=== PATIENT | male | born 1950 | race Caucasian/White ===

== ENCOUNTER 2023-11-13 12:45 | Outpatient (RCR) | payer OTHER, SELFPAY | END 2023-11-24 09:24 | disposition home or self-care (01) | LOC: PURB 12:45 | PROVIDERS: ATTENDING PHYSICIAN Internal Medicine Critical Care Medicine; FAMILY PHYSICIAN Nurse Practitioner Family | DX: J98.4 Other disorders of lung (principal) | CPT/HCPCS: G0237; G0239 ==

== ENCOUNTER 2023-12-09 16:15 | Outpatient (RCR) | payer OTHER, SELFPAY | END 2023-12-09 23:59 | disposition home or self-care (01) | LOC: PURB 16:15 | PROVIDERS: ATTENDING PHYSICIAN Internal Medicine Critical Care Medicine; FAMILY PHYSICIAN Nurse Practitioner Family | DX: J98.4 Other disorders of lung (principal) | CPT/HCPCS: G0239 ==

== ENCOUNTER 2023-12-18 16:15 | Outpatient (RCR) | payer OTHER, SELFPAY | END 2023-12-18 23:59 | disposition home or self-care (01) | LOC: PURB 16:15 | PROVIDERS: ATTENDING PHYSICIAN Internal Medicine Critical Care Medicine; FAMILY PHYSICIAN Nurse Practitioner Family | DX: J98.4 Other disorders of lung (principal); G47.33 Obstructive sleep apnea (adult) (pediatric); J96.12 Chronic respiratory failure with hypercapnia | CPT/HCPCS: G0239 ==

== ENCOUNTER 2023-12-25 16:15 | Outpatient (RCR) | payer OTHER, SELFPAY | END 2023-12-25 23:59 | disposition home or self-care (01) | LOC: PURB 16:15 | PROVIDERS: ATTENDING PHYSICIAN Internal Medicine Critical Care Medicine; FAMILY PHYSICIAN Nurse Practitioner Family | DX: J98.4 Other disorders of lung (principal) | CPT/HCPCS: G0239 ==

== ENCOUNTER 2024-03-01 11:10 | Outpatient (RCR) | payer OTHER, SELFPAY | END 2024-03-01 23:59 | disposition home or self-care (01) | LOC: RPT 11:10 | PROVIDERS: ATTENDING PHYSICIAN Psychiatry & Neurology Neurology; FAMILY PHYSICIAN Nurse Practitioner Family | DX: R26.9 Unspecified abnormalities of gait and mobility (principal); M62.81 Muscle weakness (generalized); Z73.6 Limitation of activities due to disability | CPT/HCPCS: 97110; 97163 ==

== ENCOUNTER → 2024-03-17 19:20 | Outpatient (REF) | payer OTHER, SELFPAY | LOC: MRI 19:20 | PROVIDERS: ATTENDING PHYSICIAN Psychiatry & Neurology Neurology; FAMILY PHYSICIAN Nurse Practitioner Family | DX: I63.50 Cerebral infarction due to unspecified occlusion or stenosis of unspecified cerebral artery (principal) | CPT/HCPCS: 70544 ==

== ENCOUNTER 2024-04-21 12:31 | Outpatient (RCR) | payer OTHER, SELFPAY | END 2024-04-21 23:59 | disposition home or self-care (01) | LOC: RPT 12:31 | PROVIDERS: ATTENDING PHYSICIAN Psychiatry & Neurology Neurology; FAMILY PHYSICIAN Nurse Practitioner Family | DX: R26.9 Unspecified abnormalities of gait and mobility (principal); M62.81 Muscle weakness (generalized); Z73.6 Limitation of activities due to disability | CPT/HCPCS: 97110; 97112; 97530 ==

== ENCOUNTER → 2024-05-04 17:17 | Outpatient (REF) | payer OTHER, SELFPAY | LOC: MRI 17:17 | PROVIDERS: ATTENDING PHYSICIAN Psychiatry & Neurology Neurology; FAMILY PHYSICIAN Nurse Practitioner Family | DX: I63.50 Cerebral infarction due to unspecified occlusion or stenosis of unspecified cerebral artery (principal) | CPT/HCPCS: 70549; A9575 ==

== ENCOUNTER 2024-05-19 12:30 | Outpatient (RCR) | payer OTHER, SELFPAY | END 2024-05-19 23:59 | disposition home or self-care (01) | LOC: RPT 12:30 | PROVIDERS: ATTENDING PHYSICIAN Psychiatry & Neurology Neurology; FAMILY PHYSICIAN Nurse Practitioner Family | DX: R26.9 Unspecified abnormalities of gait and mobility (principal); M62.81 Muscle weakness (generalized); Z73.6 Limitation of activities due to disability | CPT/HCPCS: 97110; 97112; 97530 ==

== ENCOUNTER 2024-06-06 23:54 | Inpatient (IN) | payer OTHER, MEDICARE, SELFPAY ==
[2024-06-06 20:07] VITALS: BP 130/60
[2024-06-06 20:37] VITALS: BP 115/84
[2024-06-06 20:49] VITALS: BMI 27.5
[2024-06-06 20:51] LABS: % Basophils 0.2 % (0-2); % Immature Granulocytes 0.4 % (0-0.5); % Lymphocytes 1.8 % (20.5-51.1); % Monocytes 4.2 % (1.7-9.3); % Neutrophils 93.4 % (42.2-75.2); Absolute Immature Granulocytes 0.1 10^3/uL (0-0.05); Absolute Lymphocytes 0.2 10^3/uL (1.2-3.4); Absolute Monocytes 0.6 10^3/uL (0.1-0.6); Absolute Neutrophils 12.4 10^3/uL (1.4-6.5); Hematocrit 39.9 % (39.0-52.0); Hemoglobin 13.2 g/dL (13.0-18.0); Mean Corp Hgb Conc. 33.1 g/dL (33.0-37.0); Mean Corpuscular Hgb 29.9 pg (27.0-31.0); Mean Corpuscular Volume 90.5 fL (80.0-94.0); Mean Platelet Volume 10.8 fL (7.4-10.4); Nucleated Red Blood Cells % 0 % (-); Platelet Count 168 10^3/uL (130-400); Red Blood Cell Count 4.41 10^6/uL (4.70-6.10); White Blood Cell Count 13.2 10^3/uL (4.8-10.8)
[2024-06-06 21:00] VITALS: BP 132/97
--- NOTE | 2024-06-06 21:02 | ED.GENMED ---
History of Present Illness
General
Chief Complaint: Headache
Source: patient and family
Exam Limitations: none
Time Seen by Provider: 06/06/24 20:32
Nursing documentation reviewed up to this point in time: agreed with
History of Present Illness
History of Present Illness:
73-year-old male CHF, permanent A-fib Watchman lives alone, few days of headache fatigue
With fever, nausea mild cough daughter spoke with him on the phone today skin to check on him states he did not look good, brought to the ER
Has been using some Tylenol, patient was at his daughter's wedding a week ago up and about his normal self daughter today states he is definitely not at his baseline, there were some folks at the wedding are sick possibly with COVID
Patient does admit to some dysuria and frequency
Past History
Past History
ED Past Medical History: Arrthythmia (Atrial fib), HTN, Hypercholesterolemia, NIDDM, Hypothyroidism and Other (Chronic LE edema)
ED Past Surgical History: Appendectomy, Cardiac (watchmans Procedure on March 03 2020) and Cholecystectomy
Social History
Tobacco: Former smoker
Alcohol: Occasional
Drug: None
Personal:
Living: alone
Employment: Retired
Review of Systems
Review of Systems
All Other Systems: Not applicable
Constitutional: Reports fever and fatigue
Respiratory: Reports cough and trouble breathing
Cardiac: Reports no symptoms
ABD/GI: Reports nausea; Denies abdominal pain
: Reports dysuria, frequency and urgency
Skin: Reports no symptoms
Neurological: Reports headache and weakness
Endocrine: Reports no symptoms
Hematologic/Lymphatic: Reports no symptoms
Phy Exam
Physical Exam
Physical Exam:
Physical Exam
General: Ill-appearing male feels warm
Neck: Dry lips
Heart: Tachycardic irregular
Lungs: Rhonchi left greater than right
Abdomen: Nontender
Neuro: alert and oriented. no focal neurological deficits
Skin: no rash
Psychiatric: cooperative
Extremities: Trace edema
Course
Orders/Labs/Results
Orders:
Orders
06/06/24 20:12
ECG [Electrocardiogram (*1)] Urgent
Reason for Study: Other
Other Reason for Exam: irregular heatr beat
Cardiology Consult: Aidan Panchal
06/06/24 20:14
EKG- Treatment ONCE
06/06/24 20:19
CT Head W/o Iv Contrast Urgent
Comment:
Reason For Exam: headache and weakness
06/06/24 20:45
COVID-19 Antigen Urgent
Source: Nasal Swab
Complete Blood Count/With Diff Urgent
Comprehensive Metabolic Panel Urgent
06/06/24 20:53
CR Chest Portable - 1 View Urgent
Comment:
Reason For Exam: sob fever
Reason Study Needs to be Portable: Patient Unstable
06/06/24 21:17
Influenza A+B Rapid Molecular Urgent
TRESSA Source: Nasal Swab
Specimen Description:
06/06/24 21:49
Acetaminophen [Tylenol] 650 mg PO NOW STA
06/06/24 22:08
Urinalysis Reflex To Culture Urgent
Date Specimen was Collected: 06/06/24
Time Specimen was Collected: 20:18
Urine Microscopic Reflex Cult Urgent
Urine Culture Urgent
TRESSA Source: U
Specimen Description:
Date Specimen was Collected: 06/06/24
Time Specimen was Collected: 20:18
06/06/24 22:48
CefTRIAXone [Rocephin] 1,000 mg IV NOW STA
06/06/24 22:49
Blood Culture Urgent
TRESSA Source: Blood/Venous
Specimen Description:
06/06/24 22:53
0.9% Sodium Chloride 1000 ml [Nss] 1,000 ml IV BOLUS
Abnormal Lab Results
06/06/24 06/06/24
20:45 22:08
WBC 13.2 H 10^3/uL
(4.8-10.8)
RBC 4.41 L 10^6/uL
(4.70-6.10)
MPV 10.8 H fL
(7.4-10.4)
Abs Immat Gran (auto) 0.1 H 10^3/uL
(0-0.05)
Absolute Neuts (auto) 12.4 H 10^3/uL
(1.4-6.5)
Absolute Lymphs (auto) 0.2 L 10^3/uL
(1.2-3.4)
Neutrophils % 93.4 H %
(42.2-75.2)
Lymphocytes % 1.8 L %
(20.5-51.1)
BUN 28 H mg/dl
(9-20)
Creatinine 2.1 H mg/dL
(0.7-1.3)
Glucose 183 H mg/dl
(70-99)
Total Bilirubin 1.8 H mg/dl
(0.2-1.3)
Ur Occult Blood Reflex 4+ A
(Negative)
Leukocyte Esterase Rfl 2+ A
(Negative)
Urine RBC 26-30 A /HPF
(0-2)
Urine WBC (Reflex) 30-40 A /HPF
(0-5)
Urine Bacteria (Reflex) Many A
(Negative)
06/06/24 20:45
06/06/24 20:45
Vital Signs
Initial and Last Documented VS:
Initial Vital Signs
Temp Pulse Resp BP Pulse Ox
98.7 F 121 20 130/60 94
06/06/24 20:07 06/06/24 20:07 06/06/24 20:07 06/06/24 20:07 06/06/24 20:07
Last Documented Vital Signs
Temp Pulse Resp BP Pulse Ox
100.6 F H 121 20 130/60 94
06/06/24 21:09 06/06/24 20:07 06/06/24 20:07 06/06/24 20:07 06/06/24 20:07
MDM/Problems Addressed
Differential Diagnosis Includes:
Viral infection bacteremia UTI INFORMATICS PHARMACIST infection pneumonia
MDM/Problems Addressed:
Fever confusion
Chronic conditions affecting care: CAD, Cardiomyopathy and Kidney disease
Acute Exacerbation and/or Progression of Chronic Illness: CAD, Cardiomyopathy and Kidney disease
*Radiology
Radiology exam reviewed: preliminary read by ED provider and radiology read reviewed
*Pulse Oximetry
Patient hypoxic: no
*EKG
Interpreted by ED Provider?: Yes
Interpretation: abnormal
Comparison EKG: no comparison EKG present
Heart Rate: 120
Rate: tachycardiac
Rhythm: a-fib
Ischemia: non-specific ST changes
*Manager Client Support Interpretation
Rate: tachycardiac
Interpretation: abnormal
Heart Rate: 118
Rhythm: a-fib
*Critical Care Note
Total Time (30-74mins, 75-104mins- exclusive of procedures): 18
Data Reviewed
Review of Other/Old Records Reveals: Labs and Records
Source: patient, records and family
Further Testing Considered But Not Given:
Lumbar puncture
Update Note
Update Note:
Update patient looks much better after some Tylenol labs are noted including urinalysis he does have symptoms and abnormal urinalysis will start on antibiotics, mental status is pretty clear will hold off on LP will admit to the hospital concern
for bacteremia patient and daughter are in agreement
ED Attending Note
-
Portions of this chart may have been created with voice recognition software.� Occasional wrong word or��sound alike� substitutions may have occurred due to the inherent limitations of voice recognition software.
Discharge Plan
Departure
Patient Disposition: Admit
Date of Disposition: 06/06/24
Time of Disposition: 22:58
Admit to: Telemetry
Presentation/result/management discussed w/ accepting MD/DO: Hospitalist
Patient with high blood pressure during this ER visit?: No
Condition: Fair
Covid-19: Negative COVID-19
Discharge Problem:
Fever, Acute confusion, Acute UTI
Prescriptions:
No Action
aspirin 81 MG tablet,delayed release (DR/EC)
81 mg PO DAILY
rosuvastatin 10 MG tablet
10 mg PO DAILY
fenofibrate nanocrystallized 145 MG tablet
145 mg PO DAILY
levothyroxine 88 MCG tablet
88 mcg PO DAILY AT 0700
multivitamin with folic acid [Tab-A-Chuy] 1 TABLET tablet
1 tab PO DAILY
docusate sodium 100 mg Capsule
100 mg PO BID PRN (Reason: constipation) 30 Days Qty: 60 0RF
tamsulosin 0.4 mg Capsule
0.4 mg PO DAILY 30 Days Qty: 30 0RF
digoxin 125 mcg (0.125 mg) Tablet
125 mcg PO MoWeFrSa@1200 30 Days Qty: 18 0RF
furosemide 20 mg Tablet
60 mg PO BID AT 0800,1600 30 Days Qty: 180 0RF
guaifenesin 600 mg Tablet Extended Release 12hr
1,200 mg PO Q12 7 Days Qty: 28 0RF
midodrine 10 mg tablet
10 mg PO TID 30 Days Qty: 90 0RF
tramadol 50 mg Tablet
25 mg PO DAILYPRN PRN (Reason: severe breakthrough pain) 7 Days Qty: 7 0RF
Rx Instructions:
pain not alleviated by Tylenol
benzonatate 100 mg Capsule
200 mg PO TIDPRN PRN (Reason: cough) 7 Days Qty: 21 0RF
pantoprazole 40 mg Tablet,Delayed Release (Dr/Ec)
40 mg PO DAILY 14 Days Qty: 14 0RF
metoprolol succinate 25 mg Tablet Extended Release 24 Hr
25 mg PO BID 30 Days Qty: 60 0RF
potassium chloride 20 mEq tablet extended release
20 meq PO DAILY 30 Days Qty: 30 0RF
Rx Instructions:
hold if off lasix
acetaminophen 325 mg Tablet
650 mg PO Q6H PRN (Reason: fever or pain) 30 Days Qty: 120 0RF
Referrals:
Yi Julian MD [Family Provider] -
Interventions
Interventions:
*Risk Screen - Suicide Last Done: 06/06/24 20:07
*General Assessment Last Done: 06/06/24 20:07
*Neglect/Abuse Screening Last Done: 06/06/24 20:07
ED- Fall Risk Assessment Last Done: 06/06/24 20:07
*ED COVID-19 Vaccine History Last Done: 06/06/24 20:07
Discharge Date and Time
Print Language: CYPRIOT
[2024-06-06 21:04] LABS: COVID-19 Antigen Negative (Negative)
[2024-06-06 21:09] LABS: ALT (SGPT) 18 U/L (0-50); AST (SGOT) 53 U/L (17-59); Albumin 4.1 g/dl (3.5-5.0); Alkaline Phosphatase 74 U/L (38-126); Blood Urea Nitrogen 28 mg/dl (9-20); Calcium 9.5 mg/dl (8.4-10.2); Carbon Dioxide 29 mmol/L (22-30); Chloride 98 mmol/L (98-107); Estimated Creatinine Clearance 31 ml/min; Glucose 183 mg/dl (70-99); Potassium 4.1 mmol/L (3.5-5.1); Sodium 140 mmol/L (135-145); Total Bilirubin 1.8 mg/dl (0.2-1.3); Total Protein 6.7 g/dl (6.3-8.2); eGFR 32.22
[2024-06-06 22:00] VITALS: BP 127/85
[2024-06-06] MEDS: TYLENOL 650 MG PO (22:03)
[2024-06-06 22:17] LABS: Urine Albumin Trace (Neg - Trace); Urine Bilirubin Negative (Negative); Urine Character Very Cloudy (Clear); Urine Color Yellow; Urine Glucose Negative (Negative); Urine Ketone Negative (Negative); Urine Leukocyte 2+ (Negative); Urine Nitrite Negative (Negative); Urine Occult Blood 4+ (Negative); Urine Urobilinogen Negative (Neg - 1+)
[2024-06-06 22:29] LABS: Urine Squamous Cell 0-2 /LPF (Few)
[2024-06-06 22:30] LABS: Urine Bacteria Many (Negative); Urine Red Blood Cell 26-30 /HPF (0-2); Urine White Cell 30-40 /HPF (0-5)
[2024-06-06] MEDS: NSS 1000 IV (23:09)
[2024-06-06] MEDS: ROCEPHIN 1000 MG IV (23:16)
--- NOTE | 2024-06-06 23:21 | HPS.HSE ---
Family Physician
-
Family Physician: Yi Julian MD
Chief Complaint
-
Weakness and confusion
History of Present Illness
This is a 73-year-old male with past medical history of atrial fibrillation status post Watchman procedure, hypothyroidism, hyperlipidemia, congestive heart failure, BPH, recent episode of TIA/seizure for which he is on Keppra who presents to the
emergency department with weakness and confusion.
Patient was last seen to be normal about a week ago when he was attending a wedding ceremony for his daughter. He tells me that about that 1 week ago he started having dysuria. Denies having any flank pain or back pain. He also reports some
nausea. He denies having any cough. Reports chronic dyspnea on exertion secondary to CHF which has been unchanged. He reports intermittent frontal headaches. Denies any neck pain, nuchal rigidity. Patient does not measure his temperatures at
home. Daughter was speaking to him this morning and noticed that it was not his usual self so decided to bring him to the ED. Patient reported that he was previously treated with finasteride for elevated PSA but finasteride has been discontinued.
He reports her symptoms of nocturia as well as weak stream. He denies any history of kidney stones. He denies any recent instrumentations. No recent travels or sick contacts.
In the emergency department the patient was febrile to 100.6, was tachycardic to the 120s, blood pressure was stable at 130/60 with oxygen saturation 94%. His ECG shows atrial fibrillation with a rate of [address] or T wave changes. CT of
the head was unremarkable chest x-ray was clear. He had a white count of 13,000 with a normal hemoglobin and platelet counts. Chemistries well unchanged from prior with his baseline creatinine of 2.1. UA was markedly positive with pyuria
bacteriuria and some hematuria.
Medical History
Past Medical History
Past Medical History: Reports Arrhythmia (Atrial Fibrillation), CHF, Hypercholesterolemia and Hypothyroidism
Additional Past Medical History:
BPH
Past Surgical History: Reports Orthopedic
Social History
Tobacco: Former Smoker
Alcohol: None
Drug: None
Personal:
Living: Alone
Employment: Retired
Family History
Family History: Not pertinent
Allergies / Home Medications
Allergies reflects when Allergies were last updated in [employer].
Home Medications with original date entered in [employer]
Allergy/Medication List:
Allergies
Allergy/AdvReac Type Severity Reaction Status Date / Time
No Known Allergies Allergy Verified 06/06/24 20:11
Home Medications
aspirin 81 mg tablet,delayed release 81 mg PO DAILY Blood clot prevention/tx 03/20/20
fenofibrate nanocrystallized 145 mg tablet 145 mg PO DAILY High cholesterol 03/20/20
rosuvastatin 10 mg tablet 10 mg PO DAILY High cholesterol 03/20/20
levothyroxine 88 mcg tablet 88 mcg PO DAILY AT 0700 Thyroid 05/30/20
digoxin 62.5 mcg tablet 62.5 mcg PO MoWeFrSa@1200 30 days #18 tabs 05/30/23
furosemide 40 mg tablet 40 mg PO DAILY
metoprolol succinate 25 mg tablet,extended release 24 hr 25 mg PO BID 30 days #60 tabs 05/30/23
pantoprazole 40 mg tablet,delayed release 40 mg PO DAILY 14 days #14 tabs 05/30/23
tamsulosin 0.4 mg capsule 0.4 mg PO DAILY 30 days #30 caps 05/30/23
Levetiracetam 500mg tablet 500mg PO BID
Review of Systems
-
History Source: Patient
Constitutional: Reports Fever and Fatigue
EENT: Reports No Symptoms
Respiratory: Reports No Symptoms
Cardiac: Reports No Symptoms
Abdomen/GI: Reports Nausea
: Reports Dysuria and Frequency
Musculoskeletal: Reports No Symptoms
Skin: Reports No Symptoms
Neurological: Reports Weakness
Endocrine: Reports No Symptoms
Hematologic/Lymphatic: Reports No Symptoms
Psych: Reports No Symptoms
Physical Exam
Vital Signs
Vital Signs
Temp Pulse Resp BP Pulse Ox
100.6 F H 76 18 127/85 96
06/06/24 21:09 06/06/24 23:15 06/06/24 23:15 06/06/24 22:00 06/06/24 23:02
Physical Exam
General: No Apparent Distress
HEENT: NormoCephalic, Anicteric, Moist mucous membranes and Atraumatic
Respiratory: Clear
Cardiac: S1/S2 and Irregular Rhythm
Breast: Deferred by me
GI: Soft, Non Tender, Non Distended and Normal Bowel Sounds
Rectal: Deferred by Provider
Genito-urinary: No costovertebral tender
Musculoskeletal: No Clubbing, No Cyanosis, Edema, Left Lower Extremity (trace) and Edema, Right Lower Extremity (trace)
Skin: Warm
Neuro: AO x 3
Hematologic/Lymphatic: No Lymphadenopathy
Psych: Calm
Laboratory Results
-
06/06/24 20:45
06/06/24 20:45
Laboratory Results
Total Bilirubin 1.8 mg/dl (0.2-1.3) H 06/06/24 20:45
AST 53 U/L (17-59) 06/06/24 20:45
ALT 18 U/L (0-50) 06/06/24 20:45
Alkaline Phosphatase 74 U/L (38-126) 06/06/24 20:45
Data Reviewed
-
Diagnostic Radiology: Image Personally Visualized and interpreted
Medical Tests (Nuc Med, Echo, EKG etc): Image Personally Visualized and interpreted
Lab Data: Discussed with Physician
Old Records: Reviewed
Impression/Plan
-
IMPRESSION:
73 M w/ h/o CHF, AFIB s/p watchman, COPD, ?Sz D/O who presents to ED with dysuria, confusion and found to be febrile.
PLAN:
1. Cystitis/Pyelonephritis - Fever, confusion, dysuria, +u/a in patient with symptomatic BPH. No acute retention. Stable renal function. No shock. No h/o stones/obstruction.
- admit to med/surg
- blood and urine cultures
- check C19
- IV ceftriaxone for now
- s/p IV fluids in ED, will hold further fluids for now as hemodynamically quite stable.
- tamsulosin 0.4 daily, bladder scan for retention
2. AFIB - Rate controlled, s/p watchman
- continue metop succinate 25 daily
- digoxin 62 mcg M/W/F/Sat
- level in am
3. CHF - Euvolemic with trace pedal edema.
- lasix 40 daily
- metoprolol
- K, mag level iin am
4. Seizure - Episode of possible seizure/tia in February. Follows with neuro (Dr. Spaulding)
- keppra 500 bid
5. Hypothyroid
- continue levothyroxine 88 mcg
DVT PPX - hep sq
Code Statuts - DNR
[2024-06-07] VITALS (7 sets, daily range): BP systolic 102–142; BP diastolic 62–90; PULSE 72–92; BMI 26.9
[2024-06-07] MEDS: HEPARIN 5000 UNITS SC ×3 (01:13→15:46)
[2024-06-07] MEDS: TYLENOL 650 MG PO ×4 (01:13→19:53)
[2024-06-07] MEDS: SYNTHROID 88 MCG PO (05:30)
[2024-06-07 08:16] LABS: Hemoglobin 12.8 g/dL (13.0-18.0); Mean Corp Hgb Conc. 32.8 g/dL (33.0-37.0); Mean Corpuscular Hgb 29.7 pg (27.0-31.0); Mean Corpuscular Volume 90.5 fL (80.0-94.0); Mean Platelet Volume 11.5 fL (7.4-10.4); Platelet Count 157 10^3/uL (130-400); Red Blood Cell Count 4.31 10^6/uL (4.70-6.10); Red Cell Dist. Width 14.4 % (11.5-14.5); White Blood Cell Count 9.9 10^3/uL (4.8-10.8)
[2024-06-07] MEDS: PROTONIX 40 MG PO (08:16)
[2024-06-07] MEDS: TOPROL XL 25 MG PO ×2 (08:16→19:57)
[2024-06-07] MEDS: CRESTOR 10 MG PO (08:16)
[2024-06-07] MEDS: ASPIR LOW (ENTERIC COATED) 81 MG PO (08:16)
[2024-06-07] MEDS: FLOMAX 0.4 MG PO (08:16)
--- NOTE | 2024-06-07 08:52 | W.PN.HOSP.TC ---
Today's Communication/Plan
-
Mild IVF
Bladder scan to rule out retention
Renal US
c/w IV Abx
Hold Lasix for now
PT/OT
Assessment / Plan
Assessment / Plan
Physical Exam
General: No Apparent Distress
HEENT: Normocephalic, Anicteric, Moist mucous membranes and Atraumatic
Respiratory: Clear
Cardiac: S1/S2 and Irregular Rhythm
GI: Soft, Non Tender, Non Distended and Normal Bowel Sounds
Rectal: No bleeding
Genito-urinary: No costovertebral tender
Musculoskeletal: No Clubbing, No Cyanosis, Edema, Left Lower Extremity (trace) and Edema, Right Lower Extremity (trace)
Skin: Warm
Neuro: AO x 3
Psych: Calm
# Sepsis POA with fever, tachycardia, confusion, leukocytosis
Likely due to Cystitis/Pyelonephritis with Fever, confusion, dysuria, +u/a in patient with symptomatic BPH. No acute retention. Stable renal function. No shock. No h/o stones/obstruction.
\\He feels better today, still with headache and dysuria
- known BPH without obstruction/lower urinary tract symptoms
WBC normalized
- Order renal US
- Order bladder scan to check for retention
- Give IVF, hold Lasix
- blood and urine cultures
- IV ceftriaxone for now
- tamsulosin 0.4 daily
# Permanent AFIB - Rate controlled, s/p watchman
- continue metop succinate 25 daily
- digoxin 62 mcg M/W/F/Sat
# CKD stage IIIb
c/w IVF
# Known chronic HFrEF
Hold Lasix while dealing with sepsis
- Euvolemic with trace pedal edema.
- metoprolol
- K, mag level in am
#Seizure - Episode of possible seizure/tia in February. Follows with neuro (Dr. Spaulding)
- Keppra 500 bid
# Hypothyroid
- continue levothyroxine 88 mcg
DVT PPX - hep sq
Code Statuts - DNR
Total time spent to see the patient, examine the patient on the floor, review data and lab results, discuss treatment plan with patient, nursing staff around 55 minutes
Anticipated Discharge: > 48 hours
Subjective/Interval History
-
Date of Service: June 07, 2024
He feels better, less aches but has headache
Denies flank pain, reports dysuria
Objective Data
-
Labs:
Laboratory Results
06/06/24 06/07/24
20:45 07:38
WBC 9.9
Hgb 12.8 L
Hct 39.0
Plt Count 157
Sodium 140 Pending
Potassium 4.1 Pending
Chloride 98 Pending
Carbon Dioxide 29 Pending
BUN 28 H Pending
Creatinine 2.1 H Pending
Glucose 183 H Pending
Calcium 9.5 Pending
Total Bilirubin 1.8 H
AST 53
ALT 18
Alkaline Phosphatase 74
Vital Signs:
Vital Signs
Temp Pulse Resp BP Pulse Ox
98.4 F 76 16 119/68 96
06/07/24 07:07 06/07/24 08:15 06/07/24 08:15 06/07/24 08:15 06/07/24 08:15
I&O
06/06/24 06/07/24 06/08/24
06:59 06:59 06:59
Intake Total 240 / 240
Output Total 300 / 300
Balance -60 / -60
[2024-06-07 09:00] LABS: Blood Urea Nitrogen 29 mg/dl (9-20); Calcium 9.3 mg/dl (8.4-10.2); Carbon Dioxide 27 mmol/L (22-30); Chloride 99 mmol/L (98-107); Estimated Creatinine Clearance 35 ml/min; Glucose 108 mg/dl (70-99); Magnesium 1.8 mg/dl (1.6-2.3); Potassium 3.9 mmol/L (3.5-5.1); Sodium 141 mmol/L (135-145); eGFR 36.33
[2024-06-07 09:47] LABS: Digoxin < 0.4 ng/ml (0.8-2.0)
[2024-06-07] MEDS: NSS 1000 IV ×2 (10:02→21:34)
--- NOTE | 2024-06-07 10:49 | CM ---
Patient seen bedside, initial assessment completed. Patient resides independently in a single story apartment, no steps to enter, walk in shower. Patient has a cane for balance, CPAP (unsure of provider). Patient reports [facility] in past, SNF in
past, unsure name of facility. Patient confirms PCP Yi Julian, pharmacy [facility] [address] in [place], confirms prescription coverage. Patient denies any food, housing/utility, transportation insecurities at home. CM will watch for PT/OT
evaluations. CM will continue to follow for all discharge planning needs.
Plan; home with VN vs SNF, watch for PT/OT recommendations.
[2024-06-07] MEDS: LANOXIN 62.5 MCG PO (11:51)
[2024-06-07] MEDS: ROCEPHIN 2000 MG IV (15:51)
[2024-06-07] MEDS: STERILE WATER FOR INJECTION 20 ML IV (15:51)
[2024-06-07] MEDS: ULTRAM 25 MG PO (21:35)
[2024-06-08] MEDS: SYNTHROID 88 MCG PO (04:02)
[2024-06-08] MEDS: ULTRAM 25 MG PO (04:02)
[2024-06-08 07:45] VITALS: BP 134/72
[2024-06-08] MEDS: CRESTOR 10 MG PO (08:08)
[2024-06-08] MEDS: PROTONIX 40 MG PO (08:08)
[2024-06-08] MEDS: FLOMAX 0.4 MG PO (08:08)
[2024-06-08] MEDS: TOPROL XL 25 MG PO ×2 (08:08→20:49)
[2024-06-08] MEDS: HEPARIN 5000 UNITS SC ×3 (08:08→15:21)
[2024-06-08] MEDS: ASPIR LOW (ENTERIC COATED) 81 MG PO (08:08)
[2024-06-08] MEDS: MAGNESIUM SULFATE 50 IV (08:23)
--- NOTE | 2024-06-08 09:25 | W.PN.HOSP.TC ---
Today's Communication/Plan
-
c/w IV Abx
f/w cultures
Stop IVF
Resume Lasix 06/09
Give 2 gm of Mg
PRN Fioricet
I spoke with daughter.
Assessment / Plan
Assessment / Plan
Physical Exam
General: No Apparent Distress
HEENT: Normocephalic, Anicteric, Moist mucous membranes and Atraumatic
Respiratory: Clear
Cardiac: S1/S2
GI: Soft, Non Tender, Non Distended.
Rectal: No bleeding
Genito-urinary: No costovertebral tender
Musculoskeletal: No Clubbing, No Cyanosis.
Skin: Warm
Neuro: AO x 3
Psych: Calm
# Sepsis POA with fever, tachycardia, confusion, leukocytosis
Likely due to Cystitis/Pyelonephritis with Fever, confusion, dysuria, +u/a in patient with symptomatic BPH. No acute retention. Stable renal function. No shock. No h/o stones/obstruction.
# bacteremia
\\He feels better today, still with headache and dysuria
- known BPH without obstruction/lower urinary tract symptoms
WBC normalized
- Order renal US, no hydronephrosis
- Ordered bladder scan, no retention
- Given IVF, held Lasix,stop IVF today, resume Lasix in am
- blood and urine cultures noted, await final results
- IV ceftriaxone for now, increase to 2 gm and wait for results
- tamsulosin 0.4 daily
# Headache , I think its c/w Migraine
He had migraine in past
will give 2 gm of magnesium sulfate, add PRN Fioricet
# Permanent AFIB - Rate controlled, s/p watchman
- continue metop succinate 25 daily
- digoxin 62 mcg M/W/F/Fri
# CKD stage IIIb
s/p IVF
Creatinine around baseline
# Known chronic HFrEF
Held Lasix while dealing with sepsis, resume tomorrow
- Euvolemic with trace pedal edema.
- metoprolol
#Seizure - Episode of possible seizure/tia in February. Follows with neuro (Dr. Spaulding)
- Keppra 500 bid
# Hypothyroid
- continue levothyroxine 88 mcg
DVT PPX - hep sq
Code Statuts - DNR
Total time spent to see the patient, examine the patient on the floor, review data and lab results, discuss treatment plan with patient, nursing staff around 55 minutes
Anticipated Discharge: > 48 hours
Subjective/Interval History
-
Date of Service: June 08, 2024
Still headache
No chest pain
No abdominal pain
Dysuria is less
Objective Data
-
Vital Signs:
Vital Signs
Temp Pulse Resp BP Pulse Ox
98.6 F 62 20 134/72 97
06/08/24 07:45 06/08/24 07:45 06/08/24 07:45 06/08/24 07:45 06/08/24 08:00
I&O
06/07/24 06/08/24 06/09/24
06:59 06:59 06:59
Intake Total 240 / 240 1620 / 1620
Output Total 300 / 300 900 / 900
Balance -60 / -60 720 / 720
[2024-06-08] MEDS: FIORICET 1 TAB PO (11:40)
[2024-06-08] MEDS: ROCEPHIN 2000 MG IV (11:41)
[2024-06-08] MEDS: STERILE WATER FOR INJECTION 20 ML IV (11:41)
--- NOTE | 2024-06-08 11:52 | CM ---
Patient seen bedside, discussed PT recommendations of outpatient PT, OT recommendations of home health vs SNF. Patient not agreeable to SNF, reports he takes care of himself. Patient is agreeable to outpatient PT, will need script upon discharge. CM
will continue to follow for all discharge planning needs.
Plan; home with script for outpatient PT, will need script upon discharge.
--- NOTE | 2024-06-08 12:25 | PN.CDI ---
Addendum entered and electronically signed by Johanna Merrill MD 06/08/24 12:40:
Metabolic Encephalopathy
Original Note:
CDI
- -
CDI:
Physician Documentation Request
Admit Date: 06/06/24 23:54
Dear Doctor Desirae
Patient presents with Sepsis with fever, tachycardia, confusion, leukocytosis
Could you provide a diagnosis in the Progress Notes for the confusion/altered mental status.
Encephalopathy - indicate type, such as metabolic, toxic, septic, alcoholic, anoxic, hypertensive etc. due to a specific condition such as UTI, CVA, hyponatremia etc.
Acute Delirium - indicate known or suspected etiology such as postoperative, due to opioids or other drugs etc. Can also indicate unknown or mixed etiologies.
Acute or subacute confusional state due to ____ (specify known or suspected etiology)
Other
Use of terms such as suspected, likely, concern for, or probable (associated with a specific diagnosis that is being evaluated, monitored, or treated as if it exists) are acceptable and can be coded in the inpatient setting, when documented at the
time of discharge.
Thank you,
Kristan Dyson RN, BSN
CDI Specialist
tiger text
Please use your independent medical judgment in providing your response.
[2024-06-08 15:40] VITALS: BP 118/69
[2024-06-08 15:50] VITALS: BP 118/69; PULSE 62
[2024-06-08 23:34] VITALS: BP 139/85
[2024-06-09] MEDS: HEPARIN 5000 UNITS SC ×3 (00:42→16:12)
--- NOTE | 2024-06-09 03:05 | DOWNTIME ---
There was a [employer] Downtime on 06/09/2024 from 0100 to 06/09/2024 at 0300. Downtime documentation of patient's care, including medication administrations, has been reconciled in the electronic record per guidelines. Refer to the
patient's paper chart under the miscellaneous tab to see printed paper medication records and downtime forms.
[2024-06-09] MEDS: SYNTHROID 88 MCG PO (05:49)
[2024-06-09 06:00] VITALS: BMI 27.7
[2024-06-09 07:00] VITALS: BP 151/84
--- NOTE | 2024-06-09 09:26 | W.PN.HOSP.TC ---
Today's Communication/Plan
-
Likely dc Friday
PT and f/w recommendations
Repeat blood culture
Pyridium
Resume diuretics
CBC & BMP in am
Assessment / Plan
Assessment / Plan
Physical Exam
General: No Apparent Distress
HEENT: Normocephalic, Anicteric, Moist mucous membranes and Atraumatic
Respiratory: Clear
Cardiac: S1/S2
GI: Soft, Non Tender, Non Distended.
Rectal: No bleeding
Genito-urinary: No costovertebral tender
Musculoskeletal: No Clubbing, No Cyanosis.
Skin: Warm
Neuro: AO x 3
Psych: Calm
# Klebsiella Sepsis POA with fever, tachycardia, confusion, leukocytosis
Likely due to Cystitis/Pyelonephritis with Fever, confusion, dysuria, +u/a in patient with symptomatic BPH. No acute retention. Stable renal function. No shock. No h/o stones/obstruction.
# bacteremia
Good clinical improvement
- known BPH without obstruction/lower urinary tract symptoms
WBC normalized
- Ordered renal US, no hydronephrosis
- Ordered bladder scan, no retention
- ordered Pyridium for dysuria
- Given IVF, held Lasix,stopped IVF, resumed Lasix 06/09
- blood and urine cultures noted, await final results
- IV ceftriaxone for now, increased to 2 gm, dc on Keflex for total of 10 days
- tamsulosin 0.4 daily
# Headache , c/w Migraine
He had migraine in past
improved after IV 2 gm of magnesium sulfate, PRN Fioricet
# Metabolic encephalopathy, resolved
Back to baseline, AAOX3
follows commands
Speech is fluent
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 Recommend to c/w aspirin & statin.
# Permanent AFIB - Rate controlled, s/p watchman
- continue metop succinate 25 daily
- digoxin 62 mcg M/W/F/Sat
# CKD stage IIIb
s/p IVF
Creatinine around baseline
# Known chronic HFrEF
Held Lasix while dealing with sepsis, resume tomorrow
- Euvolemic with trace pedal edema.
- metoprolol
#Seizure - Episode of possible seizure/tia in February. Follows with neuro (Dr. Spaulding)
- Keppra 500 bid
# Hypothyroid
- continue levothyroxine 88 mcg
DVT PPX - hep sq
Code Statuts - DNR
Total time spent to see the patient, examine the patient on the floor, review data and lab results, discuss treatment plan with patient, nursing staff around 55 minutes
Anticipated Discharge: 24 - 48 hours
Subjective/Interval History
-
Date of Service: June 09, 2024
No chest pain
No sob
No fevers
No headache
Objective Data
-
Vital Signs:
Vital Signs
Temp Pulse Resp BP Pulse Ox
98.7 F 68 14 151/84 97
06/09/24 07:00 06/09/24 07:00 06/09/24 07:00 06/09/24 07:00 06/09/24 07:00
I&O
06/08/24 06/09/24 06/10/24
06:59 06:59 06:59
Intake Total 1620 / 1620 1335 / 1335
Output Total 900 / 900 300 / 300
Balance 720 / 720 1035 / 1035
[2024-06-09] MEDS: ASPIR LOW (ENTERIC COATED) 81 MG PO (10:00)
[2024-06-09] MEDS: LASIX 60 MG PO ×2 (10:00→16:13)
[2024-06-09] MEDS: CRESTOR 10 MG PO (10:00)
[2024-06-09] MEDS: FLOMAX 0.4 MG PO (10:00)
[2024-06-09] MEDS: Pyridium 100 MG PO ×2 (10:00→16:13)
[2024-06-09] MEDS: TOPROL XL 25 MG PO ×2 (10:00→20:21)
[2024-06-09] MEDS: PROTONIX 40 MG PO (10:00)
--- NOTE | 2024-06-09 10:41 | CM ---
CM reviewed chart, likely for discharge Friday. Patient seen bedside, reports no needs to CM at this time. Patient will require script for PT/OT outpatient therapy upon discharge. CM will continue to follow for all discharge planning needs.
Plan; home with script for outpatient PT/OT upon discharge.
[2024-06-09] MEDS: FLUSH (NSS) 1 FLUSH IV (12:46)
[2024-06-09] MEDS: ROCEPHIN 2000 MG IV (12:46)
[2024-06-09] MEDS: STERILE WATER FOR INJECTION 20 ML IV (12:46)
[2024-06-09] MEDS: LANOXIN 62.5 MCG PO (12:47)
[2024-06-09 15:00] VITALS: BP 128/90
[2024-06-09 15:05] VITALS: BP 131/83; PULSE 84; O2SAT 98
--- NOTE | 2024-06-09 15:34 | PTCARENOTE ---
Pt AAO x3, FIGUEROA well, OOB in chair/ambulates to BR with use of cane/minimal assistance; roxanne well, no c/o weakness/dizziness. VSS. On room air- puls eox 100%, no SOB noted. Abd large, soft, roxanne PO well; 1920 ml fluid restriction maintained. Voids
clear orange-tinged urine in urinal; pt c/o burning with urination. Resting comfortably at present, no c/o. Will continue to monitor.
[2024-06-09 16:24] VITALS: BP 128/90
[2024-06-09 23:24] VITALS: BP 135/79
[2024-06-10] MEDS: Pyridium PO ×3 (00:22→09:50)
[2024-06-10] MEDS: HEPARIN 5000 UNITS SC (00:22)
[2024-06-10 06:00] VITALS: BMI 27.6
[2024-06-10] MEDS: SYNTHROID 88 MCG PO (06:00)
[2024-06-10 07:30] VITALS: BP 136/84
[2024-06-10 07:36] LABS: Hematocrit 37.2 % (39.0-52.0); Hemoglobin 12.2 g/dL (13.0-18.0); Mean Corp Hgb Conc. 32.8 g/dL (33.0-37.0); Mean Corpuscular Hgb 30.1 pg (27.0-31.0); Mean Corpuscular Volume 91.9 fL (80.0-94.0); Mean Platelet Volume 10.8 fL (7.4-10.4); Platelet Count 159 10^3/uL (130-400); Red Blood Cell Count 4.05 10^6/uL (4.70-6.10); Red Cell Dist. Width 13.7 % (11.5-14.5); White Blood Cell Count 6.2 10^3/uL (4.8-10.8)
[2024-06-10 07:59] LABS: Blood Urea Nitrogen 29 mg/dl (9-20); Calcium 8.9 mg/dl (8.4-10.2); Carbon Dioxide 32 mmol/L (22-30); Chloride 96 mmol/L (98-107); Estimated Creatinine Clearance 44 ml/min; Glucose 116 mg/dl (70-99); Potassium 3.6 mmol/L (3.5-5.1); Sodium 139 mmol/L (135-145); eGFR 48.25
--- NOTE | 2024-06-10 09:04 | W.PN.HOSP.TC ---
Today's Communication/Plan
-
Discharge
Assessment / Plan
Assessment / Plan
Physical Exam
General: No Apparent Distress
HEENT: Normocephalic, Anicteric, Moist mucous membranes and Atraumatic
Respiratory: Clear
Cardiac: S1/S2
GI: Soft, Non Tender, Non Distended.
Rectal: No bleeding
Genito-urinary: No costovertebral tender
Musculoskeletal: No Clubbing, No Cyanosis.
Skin: Warm
Neuro: AO x 3
Psych: Calm
# Klebsiella Sepsis POA with fever, tachycardia, confusion, leukocytosis
Likely due to Cystitis/Pyelonephritis with Fever, confusion, dysuria, +u/a in patient with symptomatic BPH. No acute retention. Stable renal function. No shock. No h/o stones/obstruction.
# bacteremia
Good clinical improvement
- known BPH without obstruction/lower urinary tract symptoms
WBC normalized
- Ordered renal US, no hydronephrosis
- Ordered bladder scan, no retention
- ordered Pyridium for dysuria
- Given IVF, held Lasix,stopped IVF, resumed Lasix 06/09
- blood and urine cultures noted.
- s/p IV ceftriaxone, dc on Keflex for total of 10 days
- tamsulosin 0.4 daily. d/w pt, he will f/w urology
# Headache , c/w Migraine
He had migraine in past
improved after IV 2 gm of magnesium sulfate, PRN Fioricet
# Metabolic encephalopathy, resolved
Back to baseline, AAOX3
follows commands
Speech is fluent
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 Recommend to c/w aspirin & statin.
# Permanent AFIB - Rate controlled, s/p watchman
- continue metop succinate 25 daily
- digoxin 62 mcg M///Fri
# CKD stage IIIb
s/p IVF
Creatinine around baseline
# Known chronic HFrEF
Held Lasix while dealing with sepsis, resumed.
Euvolemic with trace pedal edema.
- metoprolol
#Seizure - Episode of possible seizure/tia in February. Follows with neuro (Dr. Spaulding)
- Keppra 500 bid
# Hypothyroid
- continue levothyroxine 88 mcg
DVT PPX - hep sq
Code Status - DNR
Total discharge time spent to see the patient, examine the patient on the floor, review data and lab results, discuss discharge plan with patient, nursing staff around 65 minutes
Anticipated Discharge: Today
Subjective/Interval History
-
Date of Service: June 10, 2024
Doing better
No chest pain
No abd pain
No fevers
No dysuria
Objective Data
-
Labs:
Laboratory Results
06/10/24
07:21
WBC 6.2
Hgb 12.2 L
Hct 37.2 L
Plt Count 159
Sodium 139
Potassium 3.6
Chloride 96 L
Carbon Dioxide 32 H
BUN 29 H
Creatinine 1.5 H
Glucose 116 H
Calcium 8.9
Vital Signs:
Vital Signs
Temp Pulse Resp BP Pulse Ox
97.7 F 66 18 135/79 96
06/09/24 23:24 06/09/24 23:24 06/09/24 23:24 06/09/24 23:24 06/09/24 23:24
I&O
06/09/24 06/10/24 06/11/24
06:59 06:59 06:59
Intake Total 1335 / 1335 780 / 780
Output Total 300 / 300 2150 / 2150
Balance 1035 / 1035 -1370 / -1370
[2024-06-10] MEDS: TOPROL XL 25 MG PO (09:21)
[2024-06-10] MEDS: FLOMAX 0.4 MG PO (09:21)
[2024-06-10] MEDS: CRESTOR 10 MG PO (09:22)
[2024-06-10] MEDS: LASIX 60 MG PO (09:22)
[2024-06-10] MEDS: PROTONIX 40 MG PO (09:22)
[2024-06-10] MEDS: HEPARIN SC (09:22)
[2024-06-10] MEDS: ASPIR LOW (ENTERIC COATED) 81 MG PO (09:22)
--- NOTE | 2024-06-10 10:50 | PTCARENOTE ---
Discharge instructions reviewed with patient. Patient verbalizes understanding of all teaching and denies questions at this time. Peripheral IV removed. Patient left via wheelchair accompanied by staff member. Daughter here to transport patient home.
--- NOTE | 2024-06-10 11:24 | W.DCSUMMARY ---
Discharge Summary
Discharge Data
Date of Admission: 06/06/24
Date of Discharge: 06/10/24
-
Pending Results: No
Hospital Course
[age] years old male presented with urinary tract infection. Patient was complaining of fatigue, confusion. He was found to have leukocytosis and cloudy urine. Urine and blood culture came positive for Klebsiella pneumoniae. Pansensitive
bacteria. Patient was given intravenous antibiotic. Leukocytosis resolved. He did not have fevers in the hospital. His mentation improved and became normal. Renal ultrasound showed no hydronephrosis. Patient complained of history of elevated
PSA in outpatient setting. He was advised to follow-up with urologist. His a primary neurologist had retired and he was given information for local urologist. Patient tolerated diet. He remained hemodynamically stable. He was evaluated by
physical therapy and was discharged home in a stable condition.
Discharge Plan
-
Patient Disposition: Home (Routine Discharge)
Discharge Diagnosis/Procedures: Klebsiella bacteremia and UTI
Condition: Fair
Diet: As tolerated and Diabetic, Carb Controlled
Referrals:
Yi Julian MD [Family Provider] - in one to two weeks
Ricardo Taylor MD [Active] - in one to two weeks
Prescriptions:
New
cephalexin 500 mg Capsule
500 mg PO QID Qty: 24 0RF
qpxkrogrvc-nkxbqbamzrapw-oaam [Fioricet] 50-300-40 mg capsule
1 cap PO DAILYPRN PRN (Reason: Migraine) Qty: 10 0RF
Continued
aspirin 81 MG tablet,delayed release (DR/EC)
81 mg PO DAILY
rosuvastatin 10 MG tablet
10 mg PO DAILY
fenofibrate nanocrystallized 145 MG tablet
145 mg PO DAILY
levothyroxine 88 MCG tablet
88 mcg PO DAILY AT 0700
multivitamin with folic acid [Tab-A-Chuy] 1 TABLET tablet
1 tab PO DAILY
docusate sodium 100 mg Capsule
100 mg PO BID PRN (Reason: constipation) 30 Days Qty: 60 0RF
tamsulosin 0.4 mg Capsule
0.4 mg PO DAILY 30 Days Qty: 30 0RF
digoxin 125 mcg (0.125 mg) Tablet
125 mcg PO MoWeFrSa@1200 30 Days Qty: 18 0RF
midodrine 10 mg tablet
10 mg PO TID 30 Days Qty: 90 0RF
tramadol 50 mg Tablet
25 mg PO DAILYPRN PRN (Reason: severe breakthrough pain) 7 Days Qty: 7 0RF
Rx Instructions:
pain not alleviated by Tylenol
pantoprazole 40 mg Tablet,Delayed Release (Dr/Ec)
40 mg PO DAILY 14 Days Qty: 14 0RF
metoprolol succinate 25 mg Tablet Extended Release 24 Hr
25 mg PO BID 30 Days Qty: 60 0RF
potassium chloride 20 mEq tablet extended release
20 meq PO DAILY 30 Days Qty: 30 0RF
Rx Instructions:
hold if off lasix
acetaminophen 325 mg Tablet
650 mg PO Q6H PRN (Reason: fever or pain) 30 Days Qty: 120 0RF
Changed
furosemide 20 mg Tablet
40 mg PO DAILY 30 Days Qty: 180 0RF
Discontinued
guaifenesin 600 mg Tablet Extended Release 12hr
1,200 mg PO Q12 7 Days Qty: 28 0RF
benzonatate 100 mg Capsule
200 mg PO TIDPRN PRN (Reason: cough) 7 Days Qty: 21 0RF
Discharge Orders:
Discharge Patient (As Directed); Ordered 06/10/24
Ordered By: Johanna Merrill
Discharge Date and Time
Discharge Date/Time: 06/10/24 10:53
Print Language: CITIZEN OF [place]
== END 2024-06-10 10:53 | disposition home or self-care (01) | DRG 871 ==
LOC: 4 EAST ACU 23:54
PROVIDERS: ADMITTING PHYSICIAN Internal Medicine; ATTENDING PHYSICIAN Internal Medicine; EMERGENCY PHYSICIAN Emergency Medicine; FAMILY PHYSICIAN Family Medicine
DX: A41.59 Other Gram-negative sepsis (principal); G93.41 Metabolic encephalopathy; I48.21 Permanent atrial fibrillation; I13.0 Hypertensive heart and chronic kidney disease with heart failure and stage 1 through stage 4 chronic kidney disease, or unspecified chronic kidney disease; I50.22 Chronic systolic (congestive) heart failure; N12 Tubulo-interstitial nephritis, not specified as acute or chronic; Z66 Do not resuscitate; E11.22 Type 2 diabetes mellitus with diabetic chronic kidney disease; N30.91 Cystitis, unspecified with hematuria; N18.32 Chronic kidney disease, stage 3b; J44.9 Chronic obstructive pulmonary disease, unspecified; R56.9 Unspecified convulsions; E03.9 Hypothyroidism, unspecified; N40.0 Benign prostatic hyperplasia without lower urinary tract symptoms; E78.00 Pure hypercholesterolemia, unspecified; Z87.891 Personal history of nicotine dependence; Z95.818 Presence of other cardiac implants and grafts; Z86.73 Personal history of transient ischemic attack (TIA), and cerebral infarction without residual deficits; Z79.890 Hormone replacement therapy; Z79.82 Long term (current) use of aspirin; Z79.899 Other long term (current) drug therapy
CPT/HCPCS: 70450; 71045; 76775; 80048; 80053; 80162; 81003; 81015; 83735; 85025; 85027; 87040; 87077; 87086; 87149; 87186; 87205; 87502; 87811; 93005; 96361; 96374; 97116; 97162; 97166; 97535; 99285

== ENCOUNTER 2024-06-21 11:57 | Outpatient (RCR) | payer OTHER, SELFPAY | END 2024-06-21 23:59 | disposition home or self-care (01) | LOC: RPT 11:57 | PROVIDERS: ATTENDING PHYSICIAN Psychiatry & Neurology Neurology; FAMILY PHYSICIAN Nurse Practitioner Family | DX: R26.89 Other abnormalities of gait and mobility (principal); R26.9 Unspecified abnormalities of gait and mobility (principal); M62.81 Muscle weakness (generalized); Z73.6 Limitation of activities due to disability; R26.81 Unsteadiness on feet | CPT/HCPCS: 97110; 97112; 97164; 97530 ==

== ENCOUNTER 2024-07-22 13:01 | Outpatient (RCR) | payer OTHER, SELFPAY | END 2024-07-22 23:59 | disposition home or self-care (01) | LOC: RPT 13:01 | PROVIDERS: ATTENDING PHYSICIAN Psychiatry & Neurology Neurology | DX: R26.9 Unspecified abnormalities of gait and mobility (principal); R26.89 Other abnormalities of gait and mobility (principal); M62.81 Muscle weakness (generalized); Z73.6 Limitation of activities due to disability; R26.81 Unsteadiness on feet | CPT/HCPCS: 97110; 97112; 97530 ==

== ENCOUNTER → 2024-08-02 14:30 | Outpatient (REF) | payer OTHER, SELFPAY | LOC: HWRAD 14:30 | PROVIDERS: ATTENDING PHYSICIAN Internal Medicine Cardiovascular Disease; FAMILY PHYSICIAN Internal Medicine | DX: I50.32 Chronic diastolic (congestive) heart failure (principal); Z87.09 Personal history of other diseases of the respiratory system | CPT/HCPCS: 71046 ==

== ENCOUNTER 2024-12-02 19:45 | Emergency (ER) | payer OTHER, SELFPAY ==
[2024-12-02 20:09] VITALS: BP 163/108
[2024-12-02 20:30] LABS: % Basophils 0.7 % (0-2); % Eosinophils 5.1 % (0-6); % Immature Granulocytes 0.4 % (0-0.5); % Lymphocytes 14.9 % (20.5-51.1); % Monocytes 5.4 % (1.7-9.3); % Neutrophils 73.5 % (42.2-75.2); Absolute Basophils 0.1 10^3/uL (0-0.2); Absolute Eosinophils 0.4 10^3/uL (0-0.7); Absolute Lymphocytes 1.1 10^3/uL (1.2-3.4); Absolute Monocytes 0.4 10^3/uL (0.1-0.6); Absolute Neutrophils 5.3 10^3/uL (1.4-6.5); Hematocrit 43.8 % (39.0-52.0); Hemoglobin 14.1 g/dL (13.0-18.0); Mean Corp Hgb Conc. 32.2 g/dL (33.0-37.0); Mean Corpuscular Hgb 30.1 pg (27.0-31.0); Mean Corpuscular Volume 93.6 fL (80.0-94.0); Mean Platelet Volume 11.5 fL (7.4-10.4); Nucleated Red Blood Cells % 0 % (-); Platelet Count 215 10^3/uL (130-400); Red Blood Cell Count 4.68 10^6/uL (4.70-6.10); Red Cell Dist. Width 14.6 % (11.5-14.5); White Blood Cell Count 7.2 10^3/uL (4.8-10.8)
[2024-12-02 20:44] LABS: ALT (SGPT) 15 U/L (0-50); AST (SGOT) 33 U/L (17-59); Albumin 4.6 g/dl (3.5-5.0); Alkaline Phosphatase 69 U/L (38-126); Blood Urea Nitrogen 22 mg/dl (9-20); Calcium 9.8 mg/dl (8.4-10.2); Carbon Dioxide 34 mmol/L (22-30); Chloride 96 mmol/L (98-107); Glucose 136 mg/dl (70-99); Potassium 4.9 mmol/L (3.5-5.1); Sodium 139 mmol/L (135-145); Total Bilirubin 1.1 mg/dl (0.2-1.3); Total Protein 7.3 g/dl (6.3-8.2); eGFR 41.26
[2024-12-02 22:48] VITALS: BP 180/106
[2024-12-03] VITALS (7 sets, daily range): BP systolic 139–194; BP diastolic 85–119
--- NOTE | 2024-12-03 02:51 | ED.GENMED ---
History of Present Illness
General
Chief Complaint: Cold/Flu/URI Symptoms
Source: patient and family (daughter)
Time Seen by Provider: 12/03/24 01:02
History of Present Illness
History of Present Illness:
74-year-old male brought in by daughter for multiple complaints including constipation and decreased appetite. He has been to his PCP several times for these issues. Daughter, who lives with him, has been noticing a decline. Patient denies any
trauma. He does not feel like there is anything around. History is limited due to patient condition.
Past History
Past History
ED Past Medical History: Arrthythmia (Atrial fib), HTN, Hypercholesterolemia, NIDDM, Hypothyroidism and Other (Chronic LE edema)
ED Past Surgical History: Appendectomy, Cardiac (watchmans Procedure on March 03 2020) and Cholecystectomy
Social History
Tobacco: Former smoker
Alcohol: Occasional
Drug: None
Personal:
Living: alone
Employment: Retired
Phy Exam
General Physical Exam
General Presentation: well appearing and mild distress
General age: appears stated age
General Skin: warm and dry
General Habitus: normal
General Mental: alert
General Hydration: appears well hydrated
ENT Exam
ENT Exam: EOMI, pharynx normal, neck supple and normocephalic
Eye Exam
Eye Exam: PERRL, cornea clear and conjunctiva normal
Cardiovascular Exam
Cardiovascular Exam: regular rate/rhythm, no edema, no murmur and normal peripheral pulses
Pulmonary Exam
Pulmonary Exam: lungs clear, no respiratory distress, no rales, no crackles, no rhonchi, no stridor, no wheezing and no cough
Gastrointestinal Exam
Gastrointestinal Exam: normal bowel sounds, non tender, soft, no organomegaly, no pulsatile mass and non distended
Neurological Exam
Neurological Exam: alert and oriented x3
Musculoskeletal Exam
Musculoskeletal Exam: full ROM, neuro vasc intact and other (Scoliosis, walks with a cane)
Skin Exam
Skin Exam: normal color, warm/dry, no rash and no petechia
Psychiatric Exam
Psychiatric Exam: normal mood/affect
Course
Orders/Labs/Results
Orders:
Orders
12/02/24 20:12
EKG [Electrocardiogram (*1)] Urgent
Reason for Study: Shortness of Breath
EKG- Treatment ONCE
12/02/24 20:19
Complete Blood Count/With Diff Urgent
Comprehensive Metabolic Panel Urgent
12/03/24 01:18
CT Head W/o Iv Contrast Urgent
Comment:
Reason For Exam: incr confusion
12/03/24 02:48
Urinalysis Reflex To Culture Urgent
Date Specimen was Collected: 12/03/24
Time Specimen was Collected: 02:24
Urine Microscopic Reflex Cult Urgent
Urine Culture Urgent
TRESSA Source: U
Specimen Description:
Date Specimen was Collected: 12/03/24
Time Specimen was Collected: 02:24
12/03/24 02:50
Ondansetron Injectable [Zofran] 4 mg IV NOW STA
12/03/24 02:51
Butalb/Acetaminophen/Caffeine [Fioricet] 1 tab PO NOW STA
12/03/24 02:52
0.9% Sodium Chloride 500 ml [Nss] 500 ml IV BOLUS
12/03/24 04:48
Case Management Consult ONCE
Case Management Consult: [facility]N/Home Care
12/03/24 06:32
Fosfomycin [Monurol] 3 gm PO ONCE ONE
Abnormal Lab Results
12/02/24 12/03/24
20:19 02:48
RBC 4.68 L 10^6/uL
(4.70-6.10)
MCHC 32.2 L g/dL
(33.0-37.0)
RDW 14.6 H %
(11.5-14.5)
MPV 11.5 H fL
(7.4-10.4)
Absolute Lymphs (auto) 1.1 L 10^3/uL
(1.2-3.4)
Lymphocytes % 14.9 L %
(20.5-51.1)
Chloride 96 L mmol/L
(98-107)
Carbon Dioxide 34 H mmol/L
(22-30)
BUN 22 H mg/dl
(9-20)
Creatinine 1.7 H mg/dL
(0.7-1.3)
Glucose 136 H mg/dl
(70-99)
Urine Bacteria (Reflex) Moderate A
(Negative)
Urine Albumin (Reflex) 2+ A
(Neg - Trace)
12/02/24 20:19
12/02/24 20:19
Vital Signs
Initial and Last Documented VS:
Initial Vital Signs
Temp Pulse Resp BP Pulse Ox
97.4 F 70 18 163/108 96
12/02/24 20:09 12/02/24 20:09 12/02/24 20:09 12/02/24 20:09 12/02/24 20:09
Last Documented Vital Signs
Temp Pulse Resp BP Pulse Ox
97.4 F 70 13 148/95 95
12/02/24 20:09 12/03/24 04:15 12/03/24 04:15 12/03/24 06:00 12/03/24 06:15
*Critical Care Note
Total Time (30-74mins, 75-104mins- exclusive of procedures): Not Applicable
Update Note
Update Note:
CT HEAD
IMPRESSION:
No acute hemorrhage, herniation, or hydrocephalus. Moderate periventricular hypodensities, likely the sequela of small vessel ischemic disease.
No calvarial fracture.
The visualized paranasal sinuses and mastoid air cells are clear.
Spoke with daughter to review all lab work. Patient is ambulating around the room without issue. He is not having any shortness of breath. He did have a bowel movement while here in the ER.
Some bacteria in the urine. Patient is asymptomatic. Will get a dose of Monurol.
Case management consulted.
Patient to be discharged home in the care of daughter.
ED Attending Note
-
Portions of this chart may have been created with voice recognition software.� Occasional wrong word or��sound alike� substitutions may have occurred due to the inherent limitations of voice recognition software.
Discharge Plan
Departure
Patient Disposition: Home (Routine Discharge)
Date of Disposition: 12/03/24
Time of Disposition: 06:32
Patient with high blood pressure during this ER visit?: Yes
Condition: Good
Discharge Problem:
Acute UTI, Weakness, Constipation
Instructions: Urinary tract infections in adults, Fatigue (DC), Constipation, Adult ED
Prescriptions:
No Action
aspirin 81 MG tablet,delayed release (DR/EC)
81 mg PO DAILY
rosuvastatin 10 MG tablet
10 mg PO DAILY
fenofibrate nanocrystallized 145 MG tablet
145 mg PO DAILY
levothyroxine 88 MCG tablet
88 mcg PO DAILY AT 0700
multivitamin with folic acid [Tab-A-Chuy] 1 TABLET tablet
1 tab PO DAILY
docusate sodium 100 mg Capsule
100 mg PO BID PRN (Reason: constipation) 30 Days Qty: 60 0RF
tamsulosin 0.4 mg Capsule
0.4 mg PO DAILY 30 Days Qty: 30 0RF
digoxin 125 mcg (0.125 mg) Tablet
125 mcg PO MoWeFrSa@1200 30 Days Qty: 18 0RF
midodrine 10 mg tablet
10 mg PO TID 30 Days Qty: 90 0RF
tramadol 50 mg Tablet
25 mg PO DAILYPRN PRN (Reason: severe breakthrough pain) 7 Days Qty: 7 0RF
Rx Instructions:
pain not alleviated by Tylenol
pantoprazole 40 mg Tablet,Delayed Release (Dr/Ec)
40 mg PO DAILY 14 Days Qty: 14 0RF
metoprolol succinate 25 mg Tablet Extended Release 24 Hr
25 mg PO BID 30 Days Qty: 60 0RF
potassium chloride 20 mEq tablet extended release
20 meq PO DAILY 30 Days Qty: 30 0RF
Rx Instructions:
hold if off lasix
acetaminophen 325 mg Tablet
650 mg PO Q6H PRN (Reason: fever or pain) 30 Days Qty: 120 0RF
cephalexin 500 mg Capsule
500 mg PO QID Qty: 24 0RF
furosemide 20 mg Tablet
40 mg PO DAILY 30 Days Qty: 180 0RF
ygebjxvabr-hcekcspcsnhjq-qelu [Fioricet] 50-300-40 mg capsule
1 cap PO DAILYPRN PRN (Reason: Migraine) Qty: 10 0RF
Referrals:
Mario Moran I., DO [Family Provider] -
Activity Restrictions/Additional Instructions:
You received a one-time dose of antibiotics. No further prescription needed. Case management consulted. You should be receiving a call over the next few business days.
It was a pleasure meeting you and taking part in your care. We hope for your continued healing and wellness.
Please read discharge instructions in their entirety. However, they are for general education and may not describe your exact diagnosis at discharge. Information on your ER visit and medical conditions were discussed with you along with appropriate
follow up information...
If indicated, please take your medications as instructed and indicated on discharge paperwork.
Please schedule a follow up appointment as directed. Call to schedule an appointment
Please return to the emergency department with ANY change in, persisting, or worsening of symptoms. If any of your symptoms do not improve, or persist, or become more severe within 6-12 hours, please return to the emergency department for further
care.
Please return to the emergency department if you develop a headache, neck pain/stiffness, fever greater than 100.4F, chest pain, shortness of breath, persistent nausea, vomiting, slurred speech, difficulty walking, numbness/tingling, weakness, signs
of infection or any other symptoms that are worrisome to you.
If you have any questions or concerns please do not hesitate to call the Hospital at or E-mail me directly at [email or web address]
Interventions
Interventions:
*Risk Screen - Suicide Last Done: 12/02/24 20:09
*General Assessment Last Done: 12/02/24 20:09
*Neglect/Abuse Screening Last Done: 12/02/24 20:09
*ED- Fall Risk Assessment Last Done: 12/02/24 20:09
*ED COVID-19 Vaccine History Last Done: 12/02/24 20:09
ED- Pulmonary Assessment Last Done: 12/03/24 01:19
Discharge Date and Time
Print Language: CR[place]
[2024-12-03 02:55] LABS: Urine Albumin 2+ (Neg - Trace); Urine Bilirubin Negative (Negative); Urine Character Clear (Clear); Urine Color Yellow; Urine Glucose Negative (Negative); Urine Ketone Negative (Negative); Urine Leukocyte Negative (Negative); Urine Nitrite Negative (Negative); Urine Occult Blood Negative (Negative); Urine Urobilinogen Negative (Neg - 1+)
[2024-12-03] MEDS: ZOFRAN 4 MG IV (03:07)
[2024-12-03] MEDS: FIORICET 1 TAB PO (03:08)
[2024-12-03] MEDS: NSS 500 IV (03:08)
[2024-12-03 03:16] LABS: Urine Amorphous Seen; Urine Bacteria Moderate (Negative); Urine Hyaline Cast 0-2 /LPF (0-2); Urine Red Blood Cell 0-2 /HPF (0-2); Urine White Cell 0-2 /HPF (0-5)
[2024-12-03] MEDS: MONUROL 3 GM PO (06:43)
== END 2024-12-03 07:13 | disposition home or self-care (01) ==
LOC: EMR 19:45
PROVIDERS: Emergency Medicine; EMERGENCY PHYSICIAN Student in an Organized Health Care Education/Training Program; FAMILY PHYSICIAN Internal Medicine
DX: N39.0 Urinary tract infection, site not specified (principal); R53.1 Weakness; K59.00 Constipation, unspecified; E03.9 Hypothyroidism, unspecified; E11.9 Type 2 diabetes mellitus without complications; E78.00 Pure hypercholesterolemia, unspecified; I10 Essential (primary) hypertension; I48.91 Unspecified atrial fibrillation; M41.9 Scoliosis, unspecified; Z87.891 Personal history of nicotine dependence; Z90.49 Acquired absence of other specified parts of digestive tract
CPT/HCPCS: 96374; 96361; 99284; 70450; 80053; 81003; 81015; 85025; 87086; 93005

== ENCOUNTER 2024-12-31 19:20 | Emergency (ER) | payer OTHER, SELFPAY ==
[2024-12-31 19:23] VITALS: BP 95/75
[2024-12-31 21:43] LABS: % Basophils 0.7 % (0-2); % Eosinophils 3.7 % (0-6); % Immature Granulocytes 0.4 % (0-0.5); % Lymphocytes 12.6 % (20.5-51.1); % Monocytes 4.9 % (1.7-9.3); % Neutrophils 77.7 % (42.2-75.2); Absolute Basophils 0.1 10^3/uL (0-0.2); Absolute Eosinophils 0.3 10^3/uL (0-0.7); Absolute Lymphocytes 1.2 10^3/uL (1.2-3.4); Absolute Monocytes 0.5 10^3/uL (0.1-0.6); Absolute Neutrophils 7.2 10^3/uL (1.4-6.5); Hematocrit 46.9 % (39.0-52.0); Hemoglobin 15.3 g/dL (13.0-18.0); Mean Corp Hgb Conc. 32.6 g/dL (33.0-37.0); Mean Corpuscular Hgb 29.9 pg (27.0-31.0); Mean Corpuscular Volume 91.8 fL (80.0-94.0); Mean Platelet Volume 11.5 fL (7.4-10.4); Nucleated Red Blood Cells % 0 % (-); Platelet Count 198 10^3/uL (130-400); Red Blood Cell Count 5.11 10^6/uL (4.70-6.10); Red Cell Dist. Width 14.5 % (11.5-14.5); White Blood Cell Count 9.2 10^3/uL (4.8-10.8)
--- NOTE | 2024-12-31 21:46 | ED.GENMED ---
History of Present Illness
General
Chief Complaint: Fall
Source: patient
Time Seen by Provider: 12/31/24 21:32
History of Present Illness
History of Present Illness:
74-year-old male presents to the emergency room complaining of headache on the right side and having some falls. Patient states he fell yesterday because he just lost his balance while turning. He struck left side of his head. He was having pain
on the right side of his head prompting his concern and decision to come to the emergency room. He took a Fioricet for the headache without improvement. Patient denies any fever, chills, nausea or vomiting.
Past History
Past History
ED Past Medical History: Arrthythmia (Atrial fib), HTN, Hypercholesterolemia, NIDDM, Hypothyroidism and Other (Chronic LE edema)
ED Past Surgical History: Appendectomy, Cardiac (watchmans Procedure on March 03 2020) and Cholecystectomy
Social History
Tobacco: Former smoker
Alcohol: Occasional
Drug: None
Personal:
Living: alone
Employment: Retired
Phy Exam
Physical Exam
Physical Exam:
General: Awake, Alert, Oriented X3. No acute distress.
Vitals: Mildly hypertensive
Head: Ecchymosis left forehead
Eyes: Pupils equal, EOMI
Throat: Airway intact, no exudates
Neck: Trachea midline
Lungs: Clear and equal b/l
Heart: Regular rate, no murmurs
Abd: Soft, Nontender, No pulsatile mass
Neuro: Cranial nerves intact, muscle strength equal bilaterally
Skin: Warm, dry, no rash
Extremities: pulses equal b/l, no edema
Course
Orders/Labs/Results
Orders:
Orders
12/31/24 19:28
CT Head W/o Iv Contrast Urgent
Comment:
Reason For Exam: fall
12/31/24 21:23
Basic Metabolic Panel Urgent
Complete Blood Count/With Diff Urgent
12/31/24 21:28
EKG [Electrocardiogram (*1)] Urgent
Reason for Study: Vertigo / Dizzy
EKG- Treatment ONCE
12/31/24 21:47
Acetaminophen [Tylenol] 650 mg PO NOW STA
12/31/24 21:56
Acetaminophen [Tylenol] 650 mg .ROUTE .STK-MED ONE
12/31/24 23:31
Diphenhydramine [Benadryl] 25 mg IV NOW STA
Metoclopramide [Reglan] 10 mg IV NOW STA
Abnormal Lab Results
12/31/24
21:23
MCHC 32.6 L g/dL
(33.0-37.0)
MPV 11.5 H fL
(7.4-10.4)
Absolute Neuts (auto) 7.2 H 10^3/uL
(1.4-6.5)
Neutrophils % 77.7 H %
(42.2-75.2)
Lymphocytes % 12.6 L %
(20.5-51.1)
BUN 30 H mg/dl
(9-20)
Creatinine 1.7 H mg/dL
(0.7-1.3)
Glucose 160 H mg/dl
(70-99)
12/31/24 21:23
12/31/24 21:23
Vital Signs
Initial and Last Documented VS:
Initial Vital Signs
Temp Pulse Resp BP Pulse Ox
97.8 F 83 16 95/75 96
12/31/24 19:23 12/31/24 19:23 12/31/24 19:23 12/31/24 19:23 12/31/24 19:23
Last Documented Vital Signs
Temp Pulse Resp BP Pulse Ox
97.8 F 70 18 189/91 96
12/31/24 19:23 12/31/24 23:47 12/31/24 23:47 01/01/25 00:21 12/31/24 19:23
MDM/Problems Addressed
Differential Diagnosis Includes:
Subdural, cerebral contusion, tension headache, migraine headache
MDM/Problems Addressed:
Patient presents for evaluation of a headache after a fall. Head CT shows no acute abnormalities. Patient did not have improvement of his headache with Tylenol. Reglan and Benadryl were given with resolution of his headache. Patient stable for
discharge home. Labs show mild elevation renal function which is baseline for the patient.
*Radiology
Radiology exam reviewed: radiology read reviewed
*Pulse Oximetry
Patient hypoxic: no
*Critical Care Note
Total Time (30-74mins, 75-104mins- exclusive of procedures): Not Applicable
ED Attending Note
-
Portions of this chart may have been created with voice recognition software.� Occasional wrong word or��sound alike� substitutions may have occurred due to the inherent limitations of voice recognition software.
Discharge Plan
Departure
Patient Disposition: Home (Routine Discharge)
Date of Disposition: 01/01/25
Time of Disposition: 00:22
Patient with high blood pressure during this ER visit?: Yes
Condition: Good
Discharge Problem:
Headache, Head injury
Instructions: Head Injury in Adults (DC)
Prescriptions:
No Action
aspirin 81 MG tablet,delayed release (DR/EC)
81 mg PO DAILY
rosuvastatin 10 MG tablet
10 mg PO DAILY
fenofibrate nanocrystallized 145 MG tablet
145 mg PO DAILY
levothyroxine 88 MCG tablet
88 mcg PO DAILY AT 0700
multivitamin with folic acid [Tab-A-Chuy] 1 TABLET tablet
1 tab PO DAILY
docusate sodium 100 mg Capsule
100 mg PO BID PRN (Reason: constipation) 30 Days Qty: 60 0RF
tamsulosin 0.4 mg Capsule
0.4 mg PO DAILY 30 Days Qty: 30 0RF
digoxin 125 mcg (0.125 mg) Tablet
125 mcg PO MoWeFrSa@1200 30 Days Qty: 18 0RF
midodrine 10 mg tablet
10 mg PO TID 30 Days Qty: 90 0RF
tramadol 50 mg Tablet
25 mg PO DAILYPRN PRN (Reason: severe breakthrough pain) 7 Days Qty: 7 0RF
Rx Instructions:
pain not alleviated by Tylenol
pantoprazole 40 mg Tablet,Delayed Release (Dr/Ec)
40 mg PO DAILY 14 Days Qty: 14 0RF
metoprolol succinate 25 mg Tablet Extended Release 24 Hr
25 mg PO BID 30 Days Qty: 60 0RF
potassium chloride 20 mEq tablet extended release
20 meq PO DAILY 30 Days Qty: 30 0RF
Rx Instructions:
hold if off lasix
acetaminophen 325 mg Tablet
650 mg PO Q6H PRN (Reason: fever or pain) 30 Days Qty: 120 0RF
cephalexin 500 mg Capsule
500 mg PO QID Qty: 24 0RF
furosemide 20 mg Tablet
40 mg PO DAILY 30 Days Qty: 180 0RF
ruhbyxngod-yxejadqdrcrwu-iyuf [Fioricet] 50-300-40 mg capsule
1 cap PO DAILYPRN PRN (Reason: Migraine) Qty: 10 0RF
Referrals:
Mario Moran I., DO [Family Provider] -
Interventions
Interventions:
*Risk Screen - Suicide Last Done: 12/31/24 19:23
*General Assessment Last Done: 12/31/24 19:23
*Neglect/Abuse Screening Last Done: 12/31/24 19:23
*ED- Fall Risk Assessment Last Done: 01/01/25 00:36
*ED COVID-19 Vaccine History Last Done: 12/31/24 19:23
*Nursing Disposition Last Done: 01/01/25 00:36
ED-Musculoskeletal Assessment Last Done: 12/31/24 21:29
ED- Neurological Assessment Last Done: 12/31/24 21:25
ED-Skin Assessment Last Done: 12/31/24 21:29
Discharge Date and Time
Discharge Date/Time: 01/01/25 00:36
Print Language: SW[place]
[2024-12-31 21:47] VITALS: BP 157/93
[2024-12-31] MEDS: TYLENOL 650 MG PO (21:57)
[2024-12-31 21:59] LABS: Blood Urea Nitrogen 30 mg/dl (9-20); Calcium 9.5 mg/dl (8.4-10.2); Carbon Dioxide 27 mmol/L (22-30); Chloride 102 mmol/L (98-107); Glucose 160 mg/dl (70-99); Sodium 139 mmol/L (135-145); eGFR 41.26
[2024-12-31 22:29] VITALS: BP 161/100
[2024-12-31] MEDS: REGLAN 10 MG IV (23:39)
[2024-12-31] MEDS: BENADRYL 25 MG IV (23:40)
[2024-12-31 23:47] VITALS: BP 168/104
[2025-01-01 00:21] VITALS: BP 189/91
== END 2025-01-01 00:36 | disposition home or self-care (01) ==
LOC: EMR 19:20
PROVIDERS: EMERGENCY PHYSICIAN Emergency Medicine; FAMILY PHYSICIAN Internal Medicine
DX: R51.9 Headache, unspecified (principal); S09.90XA Unspecified injury of head, initial encounter; W19.XXXA Unspecified fall, initial encounter; I10 Essential (primary) hypertension; Z87.891 Personal history of nicotine dependence
CPT/HCPCS: 99285; 96374; 96375; 70450; 80048; 85025; 93005

== ENCOUNTER → 2025-01-13 09:20 | Outpatient (REF) | payer OTHER, SELFPAY | LOC: RCS 09:20 | PROVIDERS: ATTENDING PHYSICIAN Internal Medicine Cardiovascular Disease; FAMILY PHYSICIAN Internal Medicine | DX: I50.32 Chronic diastolic (congestive) heart failure (principal) | CPT/HCPCS: 93306 ==

== ENCOUNTER → 2025-01-27 06:56 | Outpatient (REF) | payer OTHER, SELFPAY | LOC: PAVMRI 06:56 | PROVIDERS: ATTENDING PHYSICIAN Internal Medicine | DX: R26.9 Unspecified abnormalities of gait and mobility (principal); R51.9 Headache, unspecified; R41.89 Other symptoms and signs involving cognitive functions and awareness | CPT/HCPCS: 70551 ==

== ENCOUNTER → 2025-03-28 09:38 | Outpatient (REF) | payer OTHER, SELFPAY | LOC: HWRAD 09:38 | PROVIDERS: ATTENDING PHYSICIAN Nurse Practitioner Adult Health; FAMILY PHYSICIAN Internal Medicine | DX: J90 Pleural effusion, not elsewhere classified (principal) | CPT/HCPCS: 71250 ==

== ENCOUNTER 2025-04-13 12:59 | Emergency (ER) | payer OTHER, SELFPAY ==
[2025-04-13 13:01] VITALS: BP 162/100
[2025-04-13 13:17] LABS: Hematocrit 44.0 % (39.0-52.0); Hemoglobin 14.3 g/dL (13.0-18.0); Mean Corp Hgb Conc. 32.5 g/dL (33.0-37.0); Mean Corpuscular Volume 94.2 fL (80.0-94.0); Nucleated Red Blood Cells % 0 % (-); Platelet Count 184 10^3/uL (130-400); Red Cell Dist. Width 14.0 % (11.5-14.5)
[2025-04-13 14:00] LABS: ALT (SGPT) 26 U/L (0-50); AST (SGOT) 89 U/L (17-59); Albumin 4.1 g/dl (3.5-5.0); Alkaline Phosphatase 95 U/L (38-126); Blood Urea Nitrogen 21 mg/dl (9-20); Calcium 9.0 mg/dl (8.4-10.2); Carbon Dioxide 30 mmol/L (22-30); Chloride 103 mmol/L (98-107); Glucose 148 mg/dl (70-99); Potassium 4.2 mmol/L (3.5-5.1); Sodium 137 mmol/L (135-145); Total Protein 6.7 g/dl (6.3-8.2); eGFR 47.95
--- NOTE | 2025-04-13 15:17 | ED.GENMED ---
History of Present Illness
General
Chief Complaint: Fall
Source: patient and family
Exam Limitations: none
Time Seen by Provider: 04/13/25 15:12
Nursing documentation reviewed up to this point in time: agreed with
History of Present Illness
History of Present Illness:
74 yo male w h/o spinal stenosis, gait abnormality, afib, Watchman implant 2019, HTN, HLD, NIDDM, Hypothyroid, BPH, Migraines, CKD 3, HFrEF, seizure, chronic LE edema, here with daughter with whom he lives for increasing SOB over past few days.
Today daughter took him to dentist and was SOB walking to office and had to use his Albuterol inhaler which is rare, also his BP at that time was 189/112.
Pt and daughter state his proposal consultant Dr Wu ordered chest CT on 03/28 which showed a nodule and is to be repeated for observation
He feels constipated, had normal BM 3 days ago then large amounts watery diarrhea past two days, has been taking MOM. Last diarrheal stool yesterday. Feels bloated and gassy.
States 'my balance is terrible' is 8 days post fall after he stumbled on rug, lost balance, fell against the glass sliding door then onto his butt and has had low back pain since that is improving daily with some help from Fiorocet he has for his
headaches. States he wouldn't be here just for his back pain as it is improving.
Has intermittent dizziness and was instructed to follow up with his neurologist but hasn't made appointment due to 'other things going on.' Denies dizziness now.
Past History
Past History
ED Past Medical History: Arrthythmia (Atrial fib), HTN, Hypercholesterolemia, NIDDM, Hypothyroidism and Other (Chronic LE edema)
ED Past Surgical History: Appendectomy, Cardiac (watchmans Procedure on March 03 2020) and Cholecystectomy
Social History
Tobacco: Former smoker
Alcohol: Occasional
Drug: None
Personal:
Living: with family
Employment: Retired
Review of Systems
Review of Systems
Allergies reviewed?: Yes
All Other Systems: ROS reviewed and negative except as documented in HPI and ROS
Constitutional: Reports fatigue; Denies fever
Respiratory: Reports trouble breathing (SOB with exertion worse past 3 days)
ABD/GI: Reports diarrhea, constipated and other (feels gassy and bloated, no pain); Denies nausea or vomiting
: Reports difficulty voiding (chronic); Denies dysuria
Musculoskeletal: Denies edema
Neurological: Denies dizzy or headache
Phy Exam
Physical Exam
Physical Exam:
GENERAL: No acute distress. A&Ox3.
CONSTITUTIONAL: Afebrile.
EYES: clear, conjunctivae normal
ENMT: moist mucus membranes, Pharynx nl
RESPIRATORY: Regular respirations, nonlabored, lungs clear.
CARDIOVASCULAR: Regular rate and rhythm, no murmurs, no rubs.
GI: Soft, nontender, non distended, normal BS
MUSCULOSKELETAL: No spinal bony tenderness, no tenderness to rest of back. No edema. Moves slowly with cane independently. Well perfused.
SKIN: Warm, dry, pink
PSYCH: Normal mood and affect. Well kept, interactive and appropriate
NEUROLOGIC: Awake, alert and oriented. No focal neurological deficits
Course
Orders/Labs/Results
Orders:
Orders
04/13/25 13:11
CMP [Comprehensive Metabolic Panel] Urgent
Complete Blood Count/With Diff Urgent
NT-proBNP Urgent
Comment: ADD ON
04/13/25 15:43
Add On- LAB Urgent
Tests Added?: BNP
04/13/25 15:44
CR Chest - 2 Views Urgent
Comment:
Reason For Exam: increasing SOB past few days
04/13/25 16:05
Case Management Consult ONCE
Case Management Consult: Discharge Planning
Comment: Daughter would like to speak with you re 'next step' as pt declines and falling more. I suggested a
walker which she will get, asking about home help
04/13/25 16:09
CT Abd/pelvis W Iv Cont Urgent
Comment:
Reason For Exam: bloating, diarrhea
Abnormal Lab Results
04/13/25
13:11
RBC 4.67 L 10^6/uL
(4.70-6.10)
MCV 94.2 H fL
(80.0-94.0)
MCHC 32.5 L g/dL
(33.0-37.0)
MPV 11.0 H fL
(7.4-10.4)
Neutrophils % 76.4 H %
(42.2-75.2)
Lymphocytes % 14.8 L %
(20.5-51.1)
BUN 21 H mg/dl
(9-20)
Creatinine 1.5 H mg/dL
(0.7-1.3)
Glucose 148 H mg/dl
(70-99)
AST 89 H U/L
(17-59)
04/13/25 13:11
04/13/25 13:11
Vital Signs
Initial and Last Documented VS:
Initial Vital Signs
Temp Pulse Resp BP Pulse Ox
97.8 F 73 20 162/100 98
04/13/25 13:01 04/13/25 13:01 04/13/25 13:01 04/13/25 13:01 04/13/25 13:01
Last Documented Vital Signs
Temp Pulse Resp BP Pulse Ox
97.8 F 73 20 172/89 98
04/13/25 13:01 04/13/25 13:01 04/13/25 13:01 04/13/25 17:00 04/13/25 17:00
MDM/Problems Addressed
Differential Diagnosis Includes:
1. Chronic obstructive pulmonary disease exacerbation
2. Congestive heart failure
3. Lung nodule - malignancy vs. benign
4. Anemia
5. GI medications side effects
6. Gastrointestinal disturbances (such as irritable bowel syndrome)
MDM/Problems Addressed:
74 yo male w h/o spinal stenosis, gait abnormality, afib, Watchman implant 2019, HTN, HLD, NIDDM, Hypothyroid, BPH, Migraines, CKD 3, HFrEF, seizure, chronic LE edema, here with daughter with whom he lives for increasing SOB over past few days.
Today daughter took him to dentist and was SOB walking to office and had to use his Albuterol inhaler which is rare, also his BP at that time was 189/112.
Pt and daughter state his proposal consultant Dr uW ordered chest CT on 03/28 which showed a nodule and is to be repeated for observation
He feels constipated, had normal BM 3 days ago then large amounts watery diarrhea past two days, has been taking MOM. Last diarrheal stool yesterday. Feels bloated and gassy.
States 'my balance is terrible' is 8 days post fall after he stumbled on rug, lost balance, fell against the glass sliding door then onto his butt and has had low back pain since that is improving daily with some help from Fiorocet he has for his
headaches. States he wouldn't be here just for his back pain as it is improving.
Has intermittent dizziness and was instructed to follow up with his neurologist but hasn't made appointment due to 'other things going on.' Denies dizziness now.
CT 03/28 report reviewed: 1.1 cm nodule NUBIA concerning for neoplasm
Last Echo 01/13/25: EF 52%
Acute Problems:
- Acute exacerbation of chronic dyspnea
- Elevated blood pressure
- Recent fall with subsequent low back pain
- Diarrhea alternating with constipation
Chronic Problems:
- Chronic shortness of breath
- Possible congestive heart failure
- Migraines
- History of dizziness and balance issues
CBC, CMP with no clinically significant abnormality. Consistent with his chronic kidney disease.
Lengthy discussion with daughter, she is concerned about the 'next step.' I recommended him getting a walker due to his increasing frequency of falls and balance problems which she agrees with and will obtain 1. She is asking to speak to case
management regarding potential help at home as he has been incontinent of stool and unable to make it to the bathroom in time.
She has an autistic child, and is feeling much stress now having to take care of her father as he is declining.
BP 175/86
CMP 2390, not significant for him
Plan:
- Evaluate the effectiveness and necessity of current inhaler use.
- Consider scheduling an appointment with a neurologist to address balance and dizziness concerns.
- Follow up with cardiology and pulmonology for chronic dyspnea and possible congestive heart failure management.
- Monitor BP at home, record and discuss with PCP or [employer] to determine need for more control
- Recommend dietary and lifestyle changes to promote regular bowel movements and manage constipation.
- Advise the use of non-slip footwear to mitigate fall risk.
-get a walker and use at all times to prevent falls
-get a bedside commode to avoid accidents with BMs
6:[address] abd/pelvis w IV only contrast Radiology report read: 1. No significant acute abnormality identified in the abdomen or pelvis, as described above.
2. Mild to moderate diffuse colonic stool burden may reflect constipation.
CXR: NAD
Pt is declining physically, no acute finding in today's workup.
*Pulse Oximetry
SaO2: 98
Oxygen Mode of Delivery: Room air
Patient hypoxic: no
*Critical Care Note
Total Time (30-74mins, 75-104mins- exclusive of procedures): Not Applicable
Patient Management
Social determinants of health affecting care: Strong social support (Lives with daughter and her family in his own apartment attached to their house)
ED Attending Note
-
Portions of this chart may have been created with voice recognition software.� Occasional wrong word or��sound alike� substitutions may have occurred due to the inherent limitations of voice recognition software.
Discharge Plan
Departure
Patient Disposition: Home (Routine Discharge)
Date of Disposition: 04/13/25
Time of Disposition: 18:43
Patient with high blood pressure during this ER visit?: No
Condition: Fair
Discharge Problem:
Ambulatory dysfunction, Constipation, intermittent dizziness
Instructions: Preventing falls in adults, High-fiber diet, Constipation in adults - ED discharge instructions, BLOOD PRESSURE
Prescriptions:
No Action
aspirin 81 MG tablet,delayed release (DR/EC)
81 mg PO DAILY
rosuvastatin 10 MG tablet
10 mg PO DAILY
fenofibrate nanocrystallized 145 MG tablet
145 mg PO DAILY
levothyroxine 88 MCG tablet
88 mcg PO DAILY AT 0700
multivitamin with folic acid [Tab-A-Chuy] 1 TABLET tablet
1 tab PO DAILY
docusate sodium 100 mg Capsule
100 mg PO BID PRN (Reason: constipation) 30 Days Qty: 60 0RF
tamsulosin 0.4 mg Capsule
0.4 mg PO DAILY 30 Days Qty: 30 0RF
digoxin 125 mcg (0.125 mg) Tablet
125 mcg PO MoWeFrSa@1200 30 Days Qty: 18 0RF
midodrine 10 mg tablet
10 mg PO TID 30 Days Qty: 90 0RF
tramadol 50 mg Tablet
25 mg PO DAILYPRN PRN (Reason: severe breakthrough pain) 7 Days Qty: 7 0RF
Rx Instructions:
pain not alleviated by Tylenol
pantoprazole 40 mg Tablet,Delayed Release (Dr/Ec)
40 mg PO DAILY 14 Days Qty: 14 0RF
metoprolol succinate 25 mg Tablet Extended Release 24 Hr
25 mg PO BID 30 Days Qty: 60 0RF
potassium chloride 20 mEq tablet extended release
20 meq PO DAILY 30 Days Qty: 30 0RF
Rx Instructions:
hold if off lasix
acetaminophen 325 mg Tablet
650 mg PO Q6H PRN (Reason: fever or pain) 30 Days Qty: 120 0RF
cephalexin 500 mg Capsule
500 mg PO QID Qty: 24 0RF
furosemide 20 mg Tablet
40 mg PO DAILY 30 Days Qty: 180 0RF
ntrsknguva-xxamthusmrjat-vwve [Fioricet] 50-300-40 mg capsule
1 cap PO DAILYPRN PRN (Reason: Migraine) Qty: 10 0RF
Referrals:
Mario Moran DO [Family Provider, Internal Medicine]
Activity Restrictions/Additional Instructions:
As we discussed, take your blood pressure daily, the same time every day under calm circumstances and write it down for the next 2 weeks.
If the majority of them are high i.e. over 140/80 consistently, please discuss with your family doctor as you may need blood pressure medication
Get a walker and use it at all times when up and around to avoid falling
Make the appointment with your Neurologist to evaluate your intermittent dizziness
Interventions
Interventions:
*Risk Screen - Suicide Last Done: 04/13/25 13:01
*General Assessment Last Done: 04/13/25 13:01
*Neglect/Abuse Screening Last Done: 04/13/25 15:20
*Nursing Disposition Last Done: 04/13/25 19:28
ED-Musculoskeletal Assessment Last Done: 04/13/25 16:12
ED- Neurological Assessment Last Done: 04/13/25 16:12
ED-Skin Assessment Last Done: 04/13/25 16:14
Discharge Date and Time
Discharge Date/Time: 04/13/25 19:28
Print Language: SERBIAN
[2025-04-13 16:09] VITALS: BP 178/94
[2025-04-13 16:12] VITALS: BMI 27.4
--- NOTE | 2025-04-13 16:36 | CM ---
Patient seen at bedside in ED with patient daughter present. patient lives with daughter in an inlaw suite and has approx 10 steps to access suite. Patient has been to [facility] and his pcp is Dr. Moran and he uses the [facility] on [address]
Patient has no DME at home and is asking for walker. CM awaiting pt/ot assessment. Patient daughter asking for information regarding home supports. Reviewed VN supports, [employer], a place for mom for the future and patient is awaiting physician to
determine care needs. CM will continue to follow for discharge planning.
Plan; home with VN vs home with no needs pending patient medical treatment plan
[2025-04-13 17:00] VITALS: BP 172/89
== END 2025-04-13 19:28 | disposition home or self-care (01) ==
LOC: EMR 12:59
PROVIDERS: Emergency Medicine; EMERGENCY PHYSICIAN Student in an Organized Health Care Education/Training Program; FAMILY PHYSICIAN Internal Medicine
DX: R42 Dizziness and giddiness (principal); R06.02 Shortness of breath; R26.2 Difficulty in walking, not elsewhere classified; K59.00 Constipation, unspecified; R51.9 Headache, unspecified; R14.0 Abdominal distension (gaseous); M54.50 Low back pain, unspecified; M48.00 Spinal stenosis, site unspecified; I48.91 Unspecified atrial fibrillation; E03.9 Hypothyroidism, unspecified; E11.22 Type 2 diabetes mellitus with diabetic chronic kidney disease; I13.0 Hypertensive heart and chronic kidney disease with heart failure and stage 1 through stage 4 chronic kidney disease, or unspecified chronic kidney disease; I50.22 Chronic systolic (congestive) heart failure; N18.30 Chronic kidney disease, stage 3 unspecified; R60.0 Localized edema; R56.9 Unspecified convulsions; K57.90 Diverticulosis of intestine, part unspecified, without perforation or abscess without bleeding; K58.9 Irritable bowel syndrome, unspecified; N40.0 Benign prostatic hyperplasia without lower urinary tract symptoms; E78.00 Pure hypercholesterolemia, unspecified; R91.1 Solitary pulmonary nodule; Z96.653 Presence of artificial knee joint, bilateral; Z87.891 Personal history of nicotine dependence; Z91.81 History of falling; Z79.82 Long term (current) use of aspirin; Z90.49 Acquired absence of other specified parts of digestive tract
CPT/HCPCS: 99284; 71046; 74177; 80053; 83880; 85025; Q9967

== ENCOUNTER 2025-06-25 18:15 | Emergency (ER) | payer OTHER, SELFPAY ==
[2025-06-25 18:19] VITALS: BP 184/91; BMI 27.6
--- NOTE | 2025-06-25 18:30 | ED.MUSCINJ ---
HPI-Injury
General
Chief Complaint: Fall
Source: patient and ambulance crew
Exam Limitations: none
Time Seen by Provider: 06/25/25 18:21
Nursing documentation reviewed up to this point in time: agreed with
History of Present Illness-Injury
Is this injury a work related problem?: No
Is pt an associate of [facility]/[place]?: No
Initial Injury comments:
Patient states he stood up from recliner, attempted to grab his rollator, lost his balance and fell back. Denies hitting his head. Complains of pain to mid back. Injury occurred just [employer]. Brought to ED by EMS for eval.
Past History
Past History
ED Past Medical History: Arrthythmia (Atrial fib), HTN, Hypercholesterolemia, NIDDM, Hypothyroidism and Other (Chronic LE edema)
ED Past Surgical History: Appendectomy, Cardiac (watchmans Procedure on March 03 2020) and Cholecystectomy
Social History
Tobacco: Former smoker
Alcohol: Occasional
Drug: None
Personal:
Living: with family
Employment: Retired
Review of Systems
Review of Systems
Allergies reviewed?: Yes
All Other Systems: ROS reviewed and negative except as documented in HPI and ROS
Constitutional: Reports no symptoms
EENT: Reports no symptoms
Respiratory: Reports no symptoms
Cardiac: Reports no symptoms
ABD/GI: Reports no symptoms
: Reports no symptoms
Musculoskeletal: Reports back pain (mid back pain)
Skin: Reports no symptoms
Neurological: Reports no symptoms
Psychiatric: Reports no symptoms
Musculoskeletal Injury Exam
Musculoskeletal Injury Exam
Middle Back:
Pain with Movement?: Moderate
Tender to palpation?: Moderate
Soft tissue swelling?: None
External deformity and angulation?: None
Joint effusion?: None
Contusion?: Moderate
Hematoma-local bleeding into tissue?: None
Strain- Sprain- Tear (Connective tissue injury)?: Moderate
Crepitus with movement?: No
Joint instability?: No
Malalignment/deformity?: No
Range of motion: Limited
Distal skin color and temperature: normal-warm & good color
Capillary Refill: normal
Normal distal neurovascular exam?: Yes
Phy Exam
General Physical Exam
General Presentation: moderate distress
General age: appears stated age
General Skin: warm and dry
General Habitus: normal
General Mental: alert
Cardiovascular Exam
Cardiovascular Exam: regular rate/rhythm
Pulmonary Exam
Pulmonary Exam: no respiratory distress and chest non tender
Gastrointestinal Exam
Gastrointestinal Exam: non tender and soft
Neurological Exam
Neurological Exam: alert, oriented x3, CN II-XII intact, no motor deficits, no sensory deficits and speech normal
Musculoskeletal Exam
Musculoskeletal Exam: neuro vasc intact
Skin Exam
Skin Exam: normal color, warm/dry and no rash
Psychiatric Exam
Psychiatric Exam: normal mood/affect
Injury Course
Orders/Labs/Results
Orders:
Orders
06/25/25 18:29
Morphine Sulfate 4 mg IV NOW STA
Ondansetron Injectable [Zofran] 4 mg IV NOW STA
06/25/25 18:30
Lumbar Spine Complete, 4 View [CR Lumbar Spine Comp Min 4 Vw*] Urgent
Comment:
Reason For Exam: fall
Thoracic Spine 3 Views CR [CR Thoracic Spine 3 Views] Urgent
Comment:
Reason For Exam: fall
06/25/25 18:41
Basic Metabolic Panel Urgent
Complete Blood Count/With Diff Urgent
06/25/25 20:01
Urinalysis Reflex To Culture Urgent
Date Specimen was Collected: 06/25/25
Time Specimen was Collected: 20:01
Urine Microscopic Reflex Cult Urgent
Urine Culture Urgent
TRESSA Source: U
Specimen Description:
Date Specimen was Collected: 06/25/25
Time Specimen was Collected: 20:01
06/25/25 20:22
Ketorolac [Toradol] 15 mg IV NOW STA
06/25/25 22:12
Oxycodone [Roxicodone] 5 mg PO NOW STA
Abnormal Lab Results
06/25/25 06/25/25
18:41 20:01
RBC 4.64 L 10^6/uL
(4.70-6.10)
MCHC 32.5 L g/dL
(33.0-37.0)
MPV 11.4 H fL
(7.4-10.4)
Abs Immat Gran (auto) 0.1 H 10^3/uL
(0-0.05)
Absolute Neuts (auto) 7.7 H 10^3/uL
(1.4-6.5)
Absolute Lymphs (auto) 1.0 L 10^3/uL
(1.2-3.4)
Immature Gran % 1.4 H %
(0-0.5)
Neutrophils % 81.1 H %
(42.2-75.2)
Lymphocytes % 10.1 L %
(20.5-51.1)
Carbon Dioxide 31 H mmol/L
(22-30)
BUN 21 H mg/dl
(9-20)
Creatinine 1.7 H mg/dL
(0.7-1.3)
Glucose 187 H mg/dl
(70-99)
Ur Occult Blood Reflex 1+ A
(Negative)
Leukocyte Esterase Rfl 1+ A
(Negative)
Urine WBC (Reflex) 11-15 A /HPF
(0-5)
Urine Bacteria (Reflex) Many A
(Negative)
Urine Glucose 2+ A
(Negative)
Urine Albumin (Reflex) 2+ A
(Neg - Trace)
06/25/25 18:41
06/25/25 18:41
*Radiology
Radiology exam reviewed: radiology read reviewed
*Pulse Oximetry
SaO2: 97
Oxygen Mode of Delivery: Room air
Patient hypoxic: no
*Critical Care Note
Total Time (30-74mins, 75-104mins- exclusive of procedures): Not Applicable
Update Note
Update Note:
Patient to ED s/p fall at home. Complains of pain to mid back. No fractures notd on xray. Full ROM to all extremities. Pain medication provided in ED. He is able to ambulate safely with walker. WIll discharge home, close follow upw ith PCP.
Given instructions on s/s to return to ED and he is agreeable to plan.
ED Attending Note
-
Portions of this chart may have been created with voice recognition software.� Occasional wrong word or��sound alike� substitutions may have occurred due to the inherent limitations of voice recognition software.
Discharge Plan
Departure
Patient Disposition: Home (Routine Discharge)
Date of Disposition: 06/25/25
Time of Disposition: 22:09
Patient with high blood pressure during this ER visit?: No
Condition: Good
Covid-19: Not Applicable
Discharge Problem:
Back pain
Instructions: Contusion (DC), Preventing falls in adults, Back Pain
Prescriptions:
New
oxycodone 5 mg capsule
5 mg PO Q6H PRN (Reason: Pain) Qty: 12 0RF
oxycodone 5 mg tablet
5 mg PO Q6H PRN (Reason: Pain) Qty: 12 0RF
No Action
aspirin 81 MG tablet,delayed release (DR/EC)
81 mg PO DAILY
rosuvastatin 10 MG tablet
10 mg PO DAILY
fenofibrate nanocrystallized 145 MG tablet
145 mg PO DAILY
levothyroxine 88 MCG tablet
88 mcg PO DAILY AT 0700
multivitamin with folic acid [Tab-A-Chuy] 1 TABLET tablet
1 tab PO DAILY
docusate sodium 100 mg Capsule
100 mg PO BID PRN (Reason: constipation) 30 Days Qty: 60 0RF
tamsulosin 0.4 mg Capsule
0.4 mg PO DAILY 30 Days Qty: 30 0RF
digoxin 125 mcg (0.125 mg) Tablet
125 mcg PO MoWeFrSa@1200 30 Days Qty: 18 0RF
midodrine 10 mg tablet
10 mg PO TID 30 Days Qty: 90 0RF
tramadol 50 mg Tablet
25 mg PO DAILYPRN PRN (Reason: severe breakthrough pain) 7 Days Qty: 7 0RF
Rx Instructions:
pain not alleviated by Tylenol
pantoprazole 40 mg Tablet,Delayed Release (Dr/Ec)
40 mg PO DAILY 14 Days Qty: 14 0RF
metoprolol succinate 25 mg Tablet Extended Release 24 Hr
25 mg PO BID 30 Days Qty: 60 0RF
potassium chloride 20 mEq tablet extended release
20 meq PO DAILY 30 Days Qty: 30 0RF
Rx Instructions:
hold if off lasix
acetaminophen 325 mg Tablet
650 mg PO Q6H PRN (Reason: fever or pain) 30 Days Qty: 120 0RF
cephalexin 500 mg Capsule
500 mg PO QID Qty: 24 0RF
furosemide 20 mg Tablet
40 mg PO DAILY 30 Days Qty: 180 0RF
zfmcznqsdt-ijxivzkbuxciw-uhiy [Fioricet] 50-300-40 mg capsule
1 cap PO DAILYPRN PRN (Reason: Migraine) Qty: 10 0RF
Referrals:
Mario Moran I., [Family Provider, Internal Medicine] - Call in 1-3 days for appt
Interventions
Interventions:
*Risk Screen - Suicide Last Done: 06/25/25 22:22
*General Assessment Last Done: 06/25/25 20:31
*Neglect/Abuse Screening Last Done: 06/25/25 20:31
*ED- Fall Risk Assessment Last Done: 06/25/25 22:22
*ED COVID-19 Vaccine History Last Done: 06/25/25 22:22
*ED Influenza Vaccine History Last Done: 06/25/25 22:22
*Nursing Disposition Last Done: 06/25/25 22:22
ED-Musculoskeletal Assessment Last Done: 06/25/25 18:20
ED- Neurological Assessment Last Done: 06/25/25 18:20
ED-Skin Assessment Last Done: 06/25/25 18:20
Discharge Date and Time
Discharge Date/Time: 06/25/25 22:23
Print Language: [id number]
[2025-06-25] MEDS: ZOFRAN 4 MG IV (18:43)
[2025-06-25] MEDS: MORPHINE SULFATE 4 MG IV (18:43)
[2025-06-25 18:53] LABS: Hematocrit 42.2 % (39.0-52.0); Hemoglobin 13.7 g/dL (13.0-18.0); Mean Corp Hgb Conc. 32.5 g/dL (33.0-37.0); Mean Corpuscular Volume 90.9 fL (80.0-94.0); Nucleated Red Blood Cells % 0 % (-); Platelet Count 182 10^3/uL (130-400); Red Cell Dist. Width 13.8 % (11.5-14.5)
[2025-06-25 19:17] LABS: Blood Urea Nitrogen 21 mg/dl (9-20); Calcium 9.2 mg/dl (8.4-10.2); Carbon Dioxide 31 mmol/L (22-30); Chloride 99 mmol/L (98-107); Estimated Creatinine Clearance 38 ml/min; Glucose 187 mg/dl (70-99); Sodium 136 mmol/L (135-145); eGFR 41.26
[2025-06-25] MEDS: TORADOL 15 MG IV (20:29)
[2025-06-25 20:30] LABS: Urine Character Slightly Cloudy (Clear)
[2025-06-25 20:31] VITALS: BP 154/97
[2025-06-25 21:05] LABS: Urine Red Blood Cell 0-2 /HPF (0-2)
[2025-06-25 21:14] VITALS: BP 150/94
[2025-06-25] MEDS: ROXICODONE 5 MG PO (22:15)
== END 2025-06-25 22:23 | disposition home or self-care (01) ==
LOC: EMR 18:15
PROVIDERS: Nurse Practitioner; EMERGENCY PHYSICIAN Student in an Organized Health Care Education/Training Program; FAMILY PHYSICIAN Internal Medicine
DX: M54.9 Dorsalgia, unspecified (principal); E11.9 Type 2 diabetes mellitus without complications; I48.91 Unspecified atrial fibrillation; I10 Essential (primary) hypertension; E78.00 Pure hypercholesterolemia, unspecified; E03.9 Hypothyroidism, unspecified; Z79.82 Long term (current) use of aspirin; Z87.891 Personal history of nicotine dependence; W01.0XXA Fall on same level from slipping, tripping and stumbling without subsequent striking against object, initial encounter
CPT/HCPCS: 99284; 96374; 96375 ×2; 72072; 72110; 80048; 81003; 81015; 85025; 87077; 87086

== ENCOUNTER → 2025-07-18 10:10 | Outpatient (REF) | payer OTHER, SELFPAY | LOC: RAD 10:10 | PROVIDERS: ATTENDING PHYSICIAN Physician Assistant; FAMILY PHYSICIAN Internal Medicine | DX: Z91.81 History of falling (principal); R07.89 Other chest pain | CPT/HCPCS: 71101 ==